=== PATIENT | male | born 1965 | race Caucasian/White ===

== ENCOUNTER 2021-11-02 12:09 | Emergency (ER) | payer OTHER, SELFPAY ==
[2021-11-02 12:16] VITALS: BP 130/67; PULSE 76; RESP 18; O2SAT 98; BMI 19.6
[2021-11-02 13:25] VITALS: BP 130/67; PULSE 76; RESP 18; TEMP 36.9; O2SAT 98; BMI 19.6
--- NOTE | 2021-11-02 13:54 | HMH.EDUTC ---
[facility] [place] Disposition Clinical Impression: Bronchitis Sinusitis Qualifiers: Sinusitis location: unspecified location Chronicity: unspecified Qualified Code(s): J32.9 - Chronic sinusitis, unspecified Disposition: Home, Self-Care Condition on Discharge: Good Instructions: Sinusitis, Acute Bronchitis, DI for Sinusitis, DI for Acute Bronchitis Additional Instructions: ? Start antibiotic today. Be sure to complete entire prescription even if feeling better ? Monitor temp. Tylenol every 4 hours as needed and / or ibuprofen every 6 hours as needed ( As long as your primary care physician has told you that it ok to take both. For fever/aches/pains ER if no less than 101 despite Tylenol or Motrin ? Humidifier/vaporizer or hot steamy shower ? Inhaler every 4-6 hours as needed like we discussed. If unsure how to use it, ask pharmacist to demonstrate how. Should help open airways and improve cough, wheezing, and shortness of breath ? Mucinex for your cough Be sure to drink lots of water. *Start steroid today. Helps with inflammation therefore, cough and wheezing. Follow directions on the package. Reviewed side effects. Patient reports taking them before. Follow up IMMEDIATELY for new or worsening of symptoms OR no noticeable improvement over the next 48-72 hours. 911 immediately for any life threatening symptoms such as chest pain or difficulty breathing Prescriptions: Benzonatate [Benzonatate 100mg cap] 100 mg PO Q8HP PRN #15 cap PRN Reason: Cough Transmission Status: Received by [id number] predniSONE [Deltasone 20mg tablet] 20 mg PO BID 5 Days #10 tab Transmission Status: Received by [facility] Cefdinir [Omnicef 300mg Capsule] 300 mg PO BID #20 cap Transmission Status: Received by [facility] Azithromycin [Z-Rashid 250mg Tab] 250 mg PO DIRECTED #6 tab Transmission Status: Received by [facility] Referrals: Provider,Referral, MD [Primary Care Provider] - As needed Forms: Work/School Release Time of Disposition: 14:18 Medical Decision Making - John Inquiry Pt receiving controlled substance: No John was queried for this patient: No Vital Signs: 11/02/21 12:16 11/02/21 13:25 11/02/21 14:20 Temperature 98.4 F 98.4 F Temperature Source Oral Pulse Rate 76 Pulse Rate [Left Radial] 76 76 Respiratory Rate 18 18 18 Blood Pressure 130/67 Blood Pressure [Right Arm] 130/67 130/67 Blood Pressure Mean [Right Arm] 88 88 Blood Pressure Source [Right Arm] Automatic Cuff Blood Pressure Position [Right Arm] Sitting 02 Sat by Pulse Oximetry 98 98 Oxygen Delivery Method Room Air Room Air Orders (Tests/Meds): ED MEDICATIONS Discontinued Medications Generic Name Dose Route Start Last Admin Trade Name Freq PRN Reason Stop Dose Admin Albuterol Sulfate 2 puffs 11/02/21 14:11 Albuterol-Hfa 90mcg/Puff Inhaler 8gm IH 12/02/21 14:10 Q6HP PRN Shortness Of Breath Medical Decision Narrative: Recommended CXR and patient declined states that he does not have any insurance and does not want to get one Medication discussed with Pharmacy and patient declined lab [facility] [place] HPI - General Stated complaint: cough,runny nose, congestion Time Seen by Provider: 11/02/21 14:05 Mode of Arrival: Ambulatory Source of Information: Patient Limitations: No Limitations Description of Symptoms (Recalled from Triage Doc. by RN): PATIENT C/O CHEST CONGESTION AND SINUS PRESSURE X 2 WEEKS HEENT Symptoms (Recalled from RN notes): Yes Resp Symptoms (Recalled from RN notes): No Skin Symptoms (Recalled from RN notes): No MS Symptoms (Recalled from RN notes): No Functional Status (Recalled from RN notes): WNL - History of Present Illness Provider Complaint: Patient states that he has been having sinus pain and pressure and feels like it is trying to move into his chest States that feels like it is worse in the morning when he wakes up State that he is an everyday smoker
[2021-11-02 14:20] VITALS: BP 130/67; PULSE 76; RESP 18; TEMP 36.9; O2SAT 98
== END 2021-11-02 14:24 | disposition home or self-care (01) ==
PROVIDERS: Emergency Provider Nurse Practitioner
DX: J20.9 Acute bronchitis, unspecified (principal); J32.9 Chronic sinusitis, unspecified
CPT/HCPCS: 99202; G0463

== ENCOUNTER → 2022-05-04 13:56 | Outpatient (CLI) | payer OTHER, SELFPAY ==
--- NOTE | 2022-05-04 13:59 | XR_ITS ---
FINAL REPORT CLINICAL HISTORY: SOA FINDINGS: Two views of the chest were obtained. The heart size and pulmonary vascularity are within normal limits. The mediastinum is normal. There is hyperinflation consistent with COPD. There is a small right pleural effusion or pleural thickening. There is mild biapical scarring. There is no pneumothorax. The bony thorax is intact. IMPRESSION: Small right pleural effusion or pleural thickening. Reviewed, Interpreted and Dictated by Nik Perrin III, MD Transcribed by Nataliia Barber Authenticated and [facility]
[2022-05-04 15:42] LABS: Basophils # 0.1 K/mm3 (0-0.2); Eosinophils # 0.1 K/mm3 (0.0-0.4); Eosinophils % 2.3 % (0.1-12.0); Hematocrit 49.8 % (42.0-52.0); Hemoglobin 17.3 g/dL (14.1-18.0); Lymphocytes # 1.5 K/mm3 (0.7-4.5); Mean Corpuscular HGB Conc 34.7 g/dL (31.8-35.4); Mean Corpuscular Hemoglobin 32.4 pg (27.0-31.2); Mean Corpuscular Volume 93.3 fl (80-94); Mean Platelet Volume 7.5 fl (7.4-10.4); Monocytes # 0.3 K/mm3 (0.1-1.0); Monocytes % 5.2 % (1.7-9.3); Neutrophils % 66.6 % (37.0-80.0); Platelet Count 276 K/mm3 (142-424); Red Blood Count 5.33 M/mm3 (4.60-6.20); Red Cell Distribution Width 13.2 % (11.5-17.5)
[2022-05-04 15:56] LABS: Alanine Aminotransferase 16 U/L (12-78); Albumin Level 4.4 g/dl (3.5-5.0); Albumin/Globulin Ratio 1.6 (1.1-1.8); Alkaline Phosphatase 138 U/L (38-126); Anion Gap 11.6 mEq/L (5-15); Aspartate Amino Transferase 25 U/L (17-59); Bilirubin,Total 0.7 mg/dl (0.2-1.3); Blood Urea Nitrogen 12 mg/dl (9-20); Calcium 9.8 mg/dl (8.4-10.2); Carbon Dioxide 27 mmol/L (22.0-30.0); Chloride 104 mmol/L (98-107); Estimated Glomerular Filt Rate 117 ml/min (>60); GFR (African American) 141 ML/MIN (>60); Globulin 2.7 g/dL (1.3-3.2); Glucose 94 mg/dl (74-100); Potassium 4.6 mmoL/L (3.5-5.1); Sodium 138 mmol/L (136-145); Total Protein,Serum 7.1 g/dl (6.3-8.2)
[2022-05-06 08:15] LABS: HIV Screen 4th Generation wRfx Non Reactive (Non Reactive)
[2022-05-06 09:46] LABS: Hep B Surface Ab, Qual Non Reactive (.); Hepatitis C Antibody <0.1 s/co ratio (0.0-0.9)
== END ==
PROVIDERS: PCP Nurse Practitioner Family; Visit Provider Nurse Practitioner Family
DX: R06.02 Shortness of breath (principal); B18.2 Chronic viral hepatitis C; R53.83 Other fatigue; Z11.4 Encounter for screening for human immunodeficiency virus [HIV]
CPT/HCPCS: 71046; 80053; 85025; 86703; 86706; 87380; G0432

== ENCOUNTER → 2022-05-07 11:13 | Outpatient (CLI) | payer OTHER, SELFPAY ==
--- NOTE | 2022-05-07 11:25 | XR_ITS ---
PROCEDURE INFORMATION: Exam: XR Lumbosacral Spine Exam date and time: 05/07/2022 11:26 AM Age: 57 years old Clinical indication: Low back pain TECHNIQUE: Imaging protocol: Radiologic exam of the lumbosacral spine. Views: 4 or 5 views. COMPARISON: No relevant prior studies available. FINDINGS: Bones/joints: Normal. No acute fracture. Normal alignment. Soft tissues: Unremarkable. IMPRESSION: No acute findings.
[2022-05-10 07:19] LABS: Hep A Ab, Total Negative (Negative); Hep B Core Ab, Total Negative (Negative); Hep B Surface Ab, Qual Non Reactive (.); Hepatitis B Surface Antigen Negative (Negative)
[2022-05-12 02:25] LABS: ALT (SGPT) P5P 14 IU/L (0-55); Alpha 2-Macroglobulins, Qn 170 mg/dL (110-276); Apolipoprotein A-1 152 mg/dL (101-178); Bilirubin, Total 0.2 mg/dL (0.0-1.2); Fibrosis Score 0.07 (0.00-0.21); GGT 22 IU/L (0-65); Haptoglobin 234 mg/dL (29-370); Necroinflammat Activity Grade A0-No activity (.); Necroinflammat Activity Score 0.03 (0.00-0.17)
== END ==
PROVIDERS: PCP Nurse Practitioner Family; Visit Provider Nurse Practitioner Family
DX: R06.02 Shortness of breath (principal); R53.83 Other fatigue; J32.9 Chronic sinusitis, unspecified; B18.2 Chronic viral hepatitis C; M54.50 Low back pain, unspecified; M79.605 Pain in left leg
CPT/HCPCS: 36415; 72110; 81596; 86704; 86706; 86708; 87340; 87522

== ENCOUNTER → 2023-04-24 12:19 | Outpatient (CLI) | payer OTHER, SELFPAY ==
--- NOTE | 2023-04-24 12:24 | XR_ITS ---
FINAL REPORT CLINICAL HISTORY: cough, soa COMPARISON: 05/04/2022 FINDINGS: TWO VIEW CHEST The heart size is normal. The mediastinum is normal. The lungs are hyperinflated consistent with COPD. There are areas of presumed bilateral scarring. There is new right suprahilar opacity of uncertain etiology, may be inflammatory or neoplastic. There is no pneumothorax. IMPRESSION: Areas of presumed scarring, which are bilaterally. New right suprahilar opacity of uncertain etiology, may be inflammatory or neoplastic. Recommend short term follow-up radiographs in 6 to 8 weeks or a chest CT scan with contrast is recommended. Reviewed, Interpreted and Dictated by Nik Perrin III, MD Transcribed by Hiren Velázquez Authenticated and [facility]
[2023-04-24 17:56] LABS: Adenovirus,PCR Not Detected (NotDetected); Bordetella Pertussis Not Detected (NotDetected); Chlamydophila Pneumoniae, PCR Not Detected (NotDetected); Coronavirus 19, PCR Not Detected (NotDetected); Coronavirus 229E Not Detected (NotDetected); Coronavirus NL63 Not Detected (NotDetected); Coronavirus OC43 Not Detected (NotDetected); Coronovirus HKU1,PCR Not Detected (NotDetected); Human Metapneumovirus Not Detected (NotDetected); Influenza A, PCR Not Detected (NotDetected); Influenza AH1, 2009 Not Detected (NotDetected); Influenza AH1, PCR Not Detected (NotDetected); Influenza AH3,PCR Not Detected (NotDetected); Influenza B, PCR Not Detected (NotDetected); Mycoplasma Pneumoniae, PCR Not Detected (NotDetected); Parainfluenza 1, PCR Not Detected (NotDetected); Parainfluenza 2, PCR Not Detected (NotDetected); Parainfluenza 3, PCR Not Detected (NotDetected); Parainfluenza 4, PCR Not Detected (NotDetected); Respiratory Syncytial Virus Not Detected (NotDetected); Rhinovirus/Enterovirus Not Detected (NotDetected)
== END ==
PROVIDERS: PCP Nurse Practitioner Family; Visit Provider Student in an Organized Health Care Education/Training Program
DX: R05.9 Cough, unspecified (principal); M67.00 Short Achilles tendon (acquired), unspecified ankle; R06.02 Shortness of breath
CPT/HCPCS: 71046; 87581; 87632; 87798

== ENCOUNTER → 2023-05-05 12:31 | Outpatient (CLI) | payer OTHER, SELFPAY ==
--- NOTE | 2023-05-05 12:35 | CT_ITS ---
FINAL REPORT TECHNIQUE: Axial images through the chest was performed with and without contrast. Sagittal and coronal reformatted images were performed and reviewed. This study was performed with techniques to keep radiation doses as low as reasonably achievable (ALARA). Individualized dose reduction techniques using automated exposure control or adjustment of mA and/or kV according to the patient's size were employed. CLINICAL HISTORY: abnormal CXR, New right suprahilar opacity FINDINGS: There is no evidence of mediastinal mass or adenopathy. No axillary or hilar mass is identified. There is no pleural or pericardial effusion. The heart is normal in size. There are changes of emphysema. There is an irregular, slightly nodular opacity in the anterior right upper lobe measuring 14 mm well seen on image 7. This may be scar but underlying nodule is not excluded. Limited images of the upper abdomen reveal several hypodense liver lesions which may be cysts but incompletely evaluated. There is no acute osseous abnormality. IMPRESSION: Irregular, slightly nodular opacity in the right upper lobe. While this may be scar, recommend six-month follow-up to ensure resolution. Emphysema. Liver lesions, may be cysts but incompletely evaluated. Reviewed, Interpreted and Dictated by Radha Mead MD Transcribed by Milana Sewell Authenticated and [facility]
== END ==
PROVIDERS: PCP Nurse Practitioner Family; Visit Provider Student in an Organized Health Care Education/Training Program
DX: R06.00 Dyspnea, unspecified (principal); R91.8 Other nonspecific abnormal finding of lung field; R93.89 Abnormal findings on diagnostic imaging of other specified body structures
CPT/HCPCS: 71270; Q9967

== ENCOUNTER → 2023-05-29 07:58 | Outpatient (CLI) | payer OTHER, SELFPAY ==
--- NOTE | 2023-05-29 07:58 | US_ITS ---
FINAL REPORT CLINICAL HISTORY: liver lesion on CT COMPARISON: CT chest 05/05/2023 FINDINGS: Sonographic images of the right upper quadrant were obtained. The pancreas is partially obscured. 2 presumed hepatic cysts, largest measures 3.4 x 2.7 cm and contains debris. The gallbladder appears normal without evidence of gallstones.There is no evidence of biliary ductal dilatation.The common duct measures 3 mm. Limited images of the right kidney are unremarkable. IMPRESSION: Two presumed hepatic cysts up to 3.4 cm. Reviewed, Interpreted and Dictated by Nik Perrin III, MD Transcribed by Amisha Freitas Authenticated and [facility]
[2023-05-29 19:08] LABS: Basophils % 0.7 % (0.1-2.0); Eosinophils # 0.1 K/mm3 (0.0-0.4); Hematocrit 50.1 % (42.0-52.0); Hemoglobin 16.3 g/dL (14.1-18.0); Lymphocytes # 1.2 K/mm3 (0.7-4.5); Lymphocytes % 19.1 % (10-50); Mean Corpuscular HGB Conc 32.6 g/dL (31.8-35.4); Mean Corpuscular Hemoglobin 31.7 pg (27.0-31.2); Mean Corpuscular Volume 97.3 fl (80-94); Mean Platelet Volume 9.5 fl (7.4-10.4); Monocytes # 0.3 K/mm3 (0.1-1.0); Monocytes % 4.6 % (1.7-9.3); Neutrophils # 4.8 K/mm3 (1.8-7.8); Neutrophils % 73.6 % (37.0-80.0); Platelet Count 305 K/mm3 (142-424); Red Blood Count 5.16 M/mm3 (4.60-6.20); Red Cell Distribution Width 13.7 % (11.5-17.5); White Blood Count 6.5 K/mm3 (4.8-10.8)
[2023-05-29 19:13] LABS: Alanine Aminotransferase 19 U/L (12-78); Albumin Level 4.2 g/dl (3.5-5.0); Albumin/Globulin Ratio 1.6 (1.1-1.8); Alkaline Phosphatase 151 U/L (38-126); Anion Gap 14.3 mEq/L (5-15); Aspartate Amino Transferase 27 U/L (17-59); Bilirubin,Total 0.5 mg/dl (0.2-1.3); Blood Urea Nitrogen 18 mg/dl (9-20); Calcium 9.2 mg/dl (8.4-10.2); Carbon Dioxide 24 mmol/L (22.0-30.0); Chloride 107 mmol/L (98-107); Chol/HDL Ratio 2.4 (1-3.5); Cholesterol 184 mg/dl (140-200); Estimated Glomerular Filt Rate 100 ml/min (>60); GFR (African American) 121 ML/MIN (>60); Globulin 2.6 g/dL (1.3-3.2); Glucose 172 mg/dl (74-100); HDL Cholesterol 78 mg/dl (40-60); Potassium 4.3 mmoL/L (3.5-5.1); Sodium 141 mmol/L (136-145); Total Protein,Serum 6.8 g/dl (6.3-8.2); Triglycerides 124 mg/dl (30-150); VLDL Cholesterol 25 mg/dL (0-40)
[2023-05-29 19:27] LABS: Direct LDL Cholesterol 89.66 mg/dL (100-129)
[2023-05-29 19:30] LABS: 25-OH Vitamin D, Total 30.6 ng/mL (30-100)
[2023-05-29 19:33] LABS: Hemoglobin A1C 5.3 % (4.0-6.0)
[2023-05-29 20:42] LABS: Prostate Specific Ag Screen 1.8 ng/ml (0.0-4.0); Thyroid Stimulating Hormone 3.26 uIU/mL (0.465-4.68)
== END ==
PROVIDERS: PCP Nurse Practitioner Family; Visit Provider Student in an Organized Health Care Education/Training Program
DX: K76.9 Liver disease, unspecified (principal); R91.8 Other nonspecific abnormal finding of lung field; R53.83 Other fatigue; Z72.0 Tobacco use; Z12.5 Encounter for screening for malignant neoplasm of prostate
CPT/HCPCS: 76705; 80053; 80061; 82306; 83036; 84443; 85025; G0103

== ENCOUNTER → 2023-05-29 10:30 | Outpatient (CLI) | payer OTHER, SELFPAY | PROVIDERS: PCP Student in an Organized Health Care Education/Training Program; Visit Provider Student in an Organized Health Care Education/Training Program | DX: R06.09 Other forms of dyspnea (principal) ==

== ENCOUNTER → 2023-06-07 14:44 | Outpatient (CLI) | payer OTHER, SELFPAY ==
[2023-06-07 15:20] LABS: Basophils # 0.1 K/mm3 (0-0.2); Basophils % 0.6 % (0.1-2.0); Eosinophils # 0.1 K/mm3 (0.0-0.4); Eosinophils % 1.9 % (0.1-12.0); Hematocrit 46.6 % (42.0-52.0); Hemoglobin 15.5 g/dL (14.1-18.0); Lymphocytes # 1.5 K/mm3 (0.7-4.5); Lymphocytes % 19.3 % (10-50); Mean Corpuscular HGB Conc 33.2 g/dL (31.8-35.4); Mean Corpuscular Hemoglobin 31.7 pg (27.0-31.2); Mean Corpuscular Volume 95.6 fl (80-94); Mean Platelet Volume 7.4 fl (7.4-10.4); Monocytes # 0.4 K/mm3 (0.1-1.0); Monocytes % 5.2 % (1.7-9.3); Neutrophils # 5.6 K/mm3 (1.8-7.8); Platelet Count 264 K/mm3 (142-424); Red Blood Count 4.87 M/mm3 (4.60-6.20); Red Cell Distribution Width 13.6 % (11.5-17.5); White Blood Count 7.6 K/mm3 (4.8-10.8)
[2023-06-10 21:08] LABS: QuantiFERON-TB Gold Plus Negative (Negative)
[2023-06-13 02:35] LABS: D001-IgE D pteronyssinus <0.10 kU/L (Class 0); D002-IgE D farinae <0.10 kU/L (Class 0); E001-IgE Cat Dander 0.44 kU/L (Class I); E005-IgE Dog Dander 0.32 kU/L (Class I); G002-IgE Bermuda Grass <0.10 kU/L (Class 0); G006-IgE Timothy Grass 0.18 kU/L (Class 0/I); I006-IgE Cockroach, German <0.10 kU/L (Class 0); Immunoglobulin E, Total 166 IU/mL (6-495); M001-IgE Penicillium chrysogen <0.10 kU/L (Class 0); M002-IgE Cladosporium herbarum <0.10 kU/L (Class 0); M003-IgE Aspergillus fumigatus <0.10 kU/L (Class 0); M006-IgE Alternaria alternata <0.10 kU/L (Class 0); T001-IgE Maple/Box Elder <0.10 kU/L (Class 0); T003-IgE Common Silver Birch <0.10 kU/L (Class 0); T006-IgE Cedar, Mountain <0.10 kU/L (Class 0); T007-IgE Oak, White <0.10 kU/L (Class 0); T008-IgE Elm, American <0.10 kU/L (Class 0); T010-IgE Walnut <0.10 kU/L (Class 0); T011-IgE Maple Leaf Sycamore <0.10 kU/L (Class 0); T014-IgE Cottonwood 0.11 kU/L (Class 0/I); T015-IgE Ash, White <0.10 kU/L (Class 0); T022-IgE Pecan, Hickory <0.10 kU/L (Class 0)
[2023-06-13 02:36] LABS: E072-IgE Mouse Urine <0.10 kU/L (Class 0); T070-IgE White Mulberry <0.10 kU/L (Class 0); W001-IgE Ragweed, Short <0.10 kU/L (Class 0); W011-IgE Thistle, Russian <0.10 kU/L (Class 0); W014-IgE Pigweed, Common <0.10 kU/L (Class 0); W018-IgE Sheep Sorrel <0.10 kU/L (Class 0)
[2023-06-13 16:20] LABS: Alpha-1-Antitrypsin 202 mg/dL (101-187)
== END ==
PROVIDERS: PCP Nurse Practitioner Family; Visit Provider Internal Medicine Pulmonary Disease
DX: J30.9 Allergic rhinitis, unspecified (principal); J45.909 Unspecified asthma, uncomplicated
CPT/HCPCS: 36415; 82103; 82104; 82785; 85025; 86003; 86480

== ENCOUNTER 2023-06-29 07:55 | Outpatient (CLI) | payer OTHER, SELFPAY ==
[2023-06-29 08:10] VITALS: BMI 17.1
[2023-06-29 08:18] VITALS: BP 184/85; PULSE 50; RESP 17; TEMP 36.4; O2SAT 97
[2023-06-29 08:24] LABS: Basophils # 0.1 K/mm3 (0-0.2); Eosinophils # 0.2 K/mm3 (0.0-0.4); Eosinophils % 4.3 % (0.1-12.0); Hematocrit 50.7 % (42.0-52.0); Hemoglobin 16.2 g/dL (14.1-18.0); Lymphocytes # 1.5 K/mm3 (0.7-4.5); Lymphocytes % 26.6 % (10-50); Mean Corpuscular HGB Conc 31.9 g/dL (31.8-35.4); Mean Corpuscular Hemoglobin 30.4 pg (27.0-31.2); Mean Corpuscular Volume 95.2 fl (80-94); Mean Platelet Volume 7.4 fl (7.4-10.4); Monocytes # 0.4 K/mm3 (0.1-1.0); Monocytes % 6.6 % (1.7-9.3); Neutrophils # 3.5 K/mm3 (1.8-7.8); Neutrophils % 61.6 % (37.0-80.0); Platelet Count 265 K/mm3 (142-424); Red Blood Count 5.32 M/mm3 (4.60-6.20); Red Cell Distribution Width 13.8 % (11.5-17.5); White Blood Count 5.6 K/mm3 (4.8-10.8)
[2023-06-29 08:38] LABS: Anion Gap 9.3 mEq/L (5-15); Blood Urea Nitrogen 13 mg/dl (9-20); Calcium 9.1 mg/dl (8.4-10.2); Carbon Dioxide 27 mmol/L (22.0-30.0); Chloride 106 mmol/L (98-107); Creatinine Clearance Estimated 82 mL/min (50-200); Estimated Glomerular Filt Rate 100 ml/min (>60); GFR (African American) 121 ML/MIN (>60); Glucose 90 mg/dl (74-100); Potassium 4.3 mmoL/L (3.5-5.1); Sodium 138 mmol/L (136-145)
[2023-06-29 09:37] VITALS: BP 131/74; PULSE 45; RESP 18; O2SAT 99
--- NOTE | 2023-06-29 09:37 | PC.NURSE ---
Rec'd pt to post op for observation after CTA. pt alert and oriented with no C/O, VSS. Drinking coffee.
[2023-06-29 09:49] VITALS: BP 136/76; PULSE 49; RESP 18; O2SAT 99
--- NOTE | 2023-06-29 09:50 | PC.NURSE ---
Pt stable, rec'd no metoprolol before or during procedure, vss. Pt discharged.
[2023-06-29 11:16] VITALS: PULSE 47; O2SAT 100
== END 2023-06-29 09:51 | disposition home or self-care (01) ==
LOC: RAD 07:55
PROVIDERS: PCP Nurse Practitioner Family; Visit Provider Internal Medicine
DX: I25.10 Atherosclerotic heart disease of native coronary artery without angina pectoris (principal); R07.9 Chest pain, unspecified; R94.31 Abnormal electrocardiogram [ECG] [EKG]; Z72.0 Tobacco use
CPT/HCPCS: 75574; 80048; 85025; Q9967

== ENCOUNTER 2023-07-21 07:32 | Day surgery (SDC) | payer OTHER, SELFPAY ==
[2023-07-21] VITALS (11 sets, daily range): BP systolic 144–168; BP diastolic 63–97; PULSE 48–66; RESP 17–18; O2SAT 93–100; BMI 17.3; BMI 16.2
--- NOTE | 2023-07-21 07:09 | IR_ITS ---
APPROVED REPORT Patient Location: Outpatient Splicer Machine Operator: KYMBERLY Carroll RT (R) PROCEDURES Left heart catheterization Left ventriculogram Selective coronary angiogram Intravascular ultrasound to the left main artery and LAD Drug-eluting stent deployment to the proximal to mid LAD INDICATION Coronary artery disease, Abnormal CCTA, MLA of 3.0 mm??? in the proximal LAD, Angina pectoris Informed consent was obtained prior to the procedure. COMPLICATIONS NONE Estimated Blood Loss: LESS THAN 10 ML TECHNIQUE One percent lidocaine used to anesthetize the right anterior aspect of the wrist. The right radial artery was accessed via the Seldinger technique. A 6 Lao sheath was placed in the right radial artery. 2.5 mg of Verapamil, 800 mcg of nitroglycerin, 1mg Lidocaine and 5000 U Heparin were given through the arterial sheath. The papa catheter was also used to perform left heart catheterization, left ventriculogram and selective coronary angiogram. At the end the diagnostic angiogram therapeutic heparin was administered and the guide catheter was placed in left main artery followed by Choice PT extra-support wire down the LAD. There was never any dampening upon engagement of the left main artery. Intravascular ultrasound probe was advanced in the left main artery had an MLA exceeding 6.5 mm???. The IVUS catheter was advanced to the proximal LAD which demonstrated a calcified concentric stenosis with an MLA in the proximal LAD of 3.0 mm???. Because of this a 3 mm x 22 mm Jonh frontier stent was deployed at 20 clinton reducing the stenosis. An additional 2.75 x 12 mm Jonh frontier stent was placed distal to the for stent yet still overlapping and deployed in the mid segment to give a better transition into the mid LAD. The balloon was pulled back and deployed at 24 clinton to post dilate. Repeat intravascular ultrasound demonstrated the stent was slightly undersized at the calcified area with less than ideal expansion of the stent. A 3.5 x 8 mm noncompliant balloon was placed in the proximal portion of the stent as well as adjacent to the first diagonal artery at the area of interest and deployed at 24 clinton. Better angiographic results were obtained. The diagonal artery was widely patent with MARIBEL-3 flow. Intravascular ultrasound probe after the first stent deployment demonstrated there was no snowplow effect or atheromatous debris in the ostial segment of the large diagonal artery. After achieving excellent angiograph results the apparatus was removed the sheath was removed and hemostasis achieved using TR banding patient was transferred to the postop holding in stable condition ANGIOGRAPHIC RESULTS The left main artery Is small in caliber with mild atheromatous plaque nothing greater than 10 to 20% The left anterior descending artery Has a calcified concentric 70 to 80% stenosis with diffuse 30% mid vessel stenoses The circumflex artery Nondominant with diffuse 10 to 20% stenoses The right coronary artery Dominant with mid vessel 30 to 40% stenosis and distal 30% stenoses The HUMMEL ventriculogram reveals Vertically oriented heart with normal ejection fraction 65% The left ventricular end-diastolic pressure 10 mmHg IMPRESSION Severe calcified proximal LAD disease as described above Successful stenting of the proximal to mid LAD severe disease reduced to less than 10% with 2 contiguous drug-eluting stents Mild left main disease Vertically oriented heart with normal ejection fraction likely all secondary to COPD Normal left ventricular end-diastolic pressure PLAN 1. Plavix 75 mg daily plus aspirin 81 mg daily 2. Avoidance of tobacco products 3. Referral to pulmonology due to suspected advanced COPD 4. LDL less than 55 but she with high intensity statin 5. Car
[2023-07-21 08:16] LABS: Basophils # 0.1 K/mm3 (0-0.2); Basophils % 1.4 % (0.1-2.0); Eosinophils # 0.1 K/mm3 (0.0-0.4); Eosinophils % 1.8 % (0.1-12.0); Hematocrit 51.9 % (42.0-52.0); Hemoglobin 16.8 g/dL (14.1-18.0); Lymphocytes # 1.1 K/mm3 (0.7-4.5); Lymphocytes % 24.5 % (10-50); Mean Corpuscular HGB Conc 32.3 g/dL (31.8-35.4); Mean Corpuscular Hemoglobin 30.9 pg (27.0-31.2); Mean Corpuscular Volume 95.4 fl (80-94); Mean Platelet Volume 7.5 fl (7.4-10.4); Monocytes # 0.4 K/mm3 (0.1-1.0); Monocytes % 8.2 % (1.7-9.3); Neutrophils # 2.8 K/mm3 (1.8-7.8); Neutrophils % 64.1 % (37.0-80.0); Platelet Count 237 K/mm3 (142-424); Red Blood Count 5.44 M/mm3 (4.60-6.20); Red Cell Distribution Width 13.8 % (11.5-17.5); White Blood Count 4.4 K/mm3 (4.8-10.8)
[2023-07-21 08:24] LABS: Chloride 104 mmol/L (98-107); Potassium 3.9 mmoL/L (3.5-5.1); Sodium 138 mmol/L (136-145)
[2023-07-21 08:27] LABS: Anion Gap 12.9 mEq/L (5-15); Blood Urea Nitrogen 16 mg/dl (9-20); Calcium 8.9 mg/dl (8.4-10.2); Carbon Dioxide 25 mmol/L (22.0-30.0); Creatinine Clearance Estimated 83 mL/min (50-200); Estimated Glomerular Filt Rate 100 ml/min (>60); GFR (African American) 121 ML/MIN (>60); Glucose 89 mg/dl (74-100)
[2023-07-21 12:15] LABS: CATHL Activated Clotting Time > 400 SEC (74-125)
--- NOTE | 2023-07-21 13:24 | P.CONPHA_ITS ---
PHA Bank Operations Officer Discharge Med Industrial Roof Plumber: Adi Hubbard has received discharge medication counseling on the following medications: ASPIRIN PLAVIX (NEW) METOPROLOL ATORVASTATIN (NEW) RAMIPRIL (NEW) PATIENT HAD NO QUESTIONS OR CONCERNS AT THIS TIME. -QUIANA GONZALEZ, PHARMD
== END 2023-07-21 14:11 | disposition home or self-care (01) ==
PROVIDERS: PCP Nurse Practitioner Family; Visit Provider Internal Medicine
DX: I25.118 Atherosclerotic heart disease of native coronary artery with other forms of angina pectoris (principal); F17.210 Nicotine dependence, cigarettes, uncomplicated; K76.89 Other specified diseases of liver; Z79.899 Other long term (current) drug therapy
CPT/HCPCS: 80048; 85025; 85347; 92928; 92978; 92979; 93458; 99152; 99153; C1725; C1760; C1769; C1876; C9600; J1644; Q9967

== ENCOUNTER → 2023-07-25 08:28 | Outpatient (CLI) | payer OTHER, SELFPAY ==
--- NOTE | 2023-07-25 08:31 | CA_ITS ---
APPROVED REPORT EXAM: Comprehensive 2D, Doppler, and color-flow Echocardiogram Hand Molder And Caster: Ch[place]el [place] RDCS Ht: 6 ft 0 in Wt: 128lbs BSA: 1.76 BP: 145/77 mmHg Indications: MVP?/COPD/SOA/SMOKER/ABN EKG TDS LOW ACCESS SECONDARY TO COPD UNNABLE TO OBTAIN PSAX OF AV M-Mode Dimensions RVDd 2.29 cm (0.9-2.6) LVDd 4.34 cm (3.5-5.7) LVDs 3.36 cm (3.5-5.7) IVSd 0.98 cm (0.6-1.1) PWd 1.07 cm (0.6-1.1) EF (Teich) 45.70% FS 22.60% EDV (Teich) 84.90 mL ESV (Teich) 46.10 mL LV Diastology E Decel Time 413.00 (160-240 msec) E/A Ratio 1.1 MED E' 8.80 (< 7 cm/sec) E'/MED E' Ratio 6.23 (>14) LAT E' 10.10 (<10 cm/sec) E/LAT E' Ratio 5.43 (>14) Mitral Valve MV E Max Nathan. 55.00 (40-130 cm/s) MV A Velocity 48.00 (40-130 cm/s) E/A Ratio 1.14 MV Decel. Time 413.00 (160-240 ms) MV PHT 121.00 ms Left Ventricle The left ventricle is normal size. The left ventricular systolic function is normal. The left ventricular ejection fraction is within the normal range. There is normal left ventricular wall thickness. There is normal LV segmental wall motion. The left ventricular diastolic function is normal. LVEF is 55%. Right Ventricle The right ventricle is normal size. The right ventricular systolic function is normal. Atria The left atrium size is normal. The right atrium size is normal. There is no Doppler evidence of interatrial shunt. Aortic Valve The aortic valve leaflets are difficult to visualize, but grossly appear to open well. There is no aortic valvular stenosis. No aortic regurgitation is present. Mitral Valve The mitral valve leaflets are not very well visualized. The anterior leaflet appears to have at least mild MV prolapse. The posterior leaflet is not well visualized. No evidence of mitral valve stenosis. There is no mitral valve regurgitation noted. Tricuspid Valve The tricuspid valve leaflets are thin and pliable. Trace tricuspid regurgitation. Insufficient TR jet to estimate RVSP. Pulmonic Valve The pulmonary valve is not well visualized. Trace pulmonic regurgitation. Great Vessels The aortic root is normal in size. The ascending aorta is not well visualized. IVC is normal in size and collapses >50% with inspiration. Pericardium There is no pericardial effusion. Conclusion This was a technically difficult study due to poor acoustic windows. Normal biventricular systolic function. The anterior MV leaflet appears to have at least mild prolapse. The posterior MV leaflet is not well visualized. No significant valvular stenosis or regurgitation. Electronically signed by : Veena Merida MD 07/28/2023 19:23:49
== END ==
PROVIDERS: PCP Nurse Practitioner Family; Visit Provider Nurse Practitioner Family
DX: I25.10 Atherosclerotic heart disease of native coronary artery without angina pectoris (principal); R07.9 Chest pain, unspecified; R94.31 Abnormal electrocardiogram [ECG] [EKG]; Z72.0 Tobacco use
CPT/HCPCS: 93306

== ENCOUNTER → 2023-08-01 09:23 | Outpatient (CLI) | payer OTHER, SELFPAY ==
[2023-08-01 10:07] LABS: Basophils % 0.6 % (0.1-2.0); Eosinophils # 0.2 K/mm3 (0.0-0.4); Eosinophils % 2.2 % (0.1-12.0); Hematocrit 44.4 % (42.0-52.0); Hemoglobin 15.6 g/dL (14.1-18.0); Lymphocytes # 1.4 K/mm3 (0.7-4.5); Lymphocytes % 20.3 % (10-50); Mean Corpuscular HGB Conc 35.1 g/dL (31.8-35.4); Mean Corpuscular Hemoglobin 32.9 pg (27.0-31.2); Mean Corpuscular Volume 93.7 fl (80-94); Mean Platelet Volume 6.5 fl (7.4-10.4); Monocytes # 0.3 K/mm3 (0.1-1.0); Monocytes % 4.3 % (1.7-9.3); Neutrophils # 4.9 K/mm3 (1.8-7.8); Neutrophils % 72.6 % (37.0-80.0); Platelet Count 237 K/mm3 (142-424); Red Blood Count 4.73 M/mm3 (4.60-6.20); Red Cell Distribution Width 13.3 % (11.5-17.5); White Blood Count 6.8 K/mm3 (4.8-10.8)
[2023-08-01 10:45] LABS: Chloride 105 mmol/L (98-107)
[2023-08-01 10:46] LABS: Potassium 3.9 mmoL/L (3.5-5.1); Sodium 139 mmol/L (136-145)
[2023-08-01 10:48] LABS: Blood Urea Nitrogen 18 mg/dl (9-20); Estimated Glomerular Filt Rate 116 ml/min (>60); GFR (African American) 141 ML/MIN (>60)
[2023-08-01 10:49] LABS: Anion Gap 11.9 mEq/L (5-15); Carbon Dioxide 26 mmol/L (22.0-30.0); Glucose 63 mg/dl (74-100)
== END ==
PROVIDERS: PCP Nurse Practitioner Family; Visit Provider Internal Medicine
DX: I25.10 Atherosclerotic heart disease of native coronary artery without angina pectoris (principal); Z95.5 Presence of coronary angioplasty implant and graft
CPT/HCPCS: 36415; 80048; 85025

== ENCOUNTER → 2023-08-08 12:45 | Outpatient (CLI) | payer OTHER, SELFPAY ==
[2023-08-08 13:30] VITALS: PULSE 74; PULSE 78
== END ==
PROVIDERS: PCP Nurse Practitioner Family; Visit Provider Internal Medicine Pulmonary Disease
DX: R06.09 Other forms of dyspnea (principal)
CPT/HCPCS: 94060; 94618; 94640; 94727; 94729

== ENCOUNTER → 2023-10-10 23:23 | Outpatient (CLI) | payer OTHER, SELFPAY | LOC: LAB.DROPOF 23:24 | PROVIDERS: PCP Nurse Practitioner Family; Visit Provider Student in an Organized Health Care Education/Training Program | DX: R05.9 Cough, unspecified (principal); R06.2 Wheezing; R09.89 Other specified symptoms and signs involving the circulatory and respiratory systems | CPT/HCPCS: 87635 ==

== ENCOUNTER → 2023-10-12 12:51 | Outpatient (CLI) | payer OTHER, SELFPAY ==
--- NOTE | 2023-10-12 12:51 | CT_ITS ---
FINAL REPORT TECHNIQUE: Axial images were obtained through the chest without contrast. Sagittal and coronal reformatted images were obtained and reviewed. This study was performed with techniques to keep radiation doses as low as reasonably achievable (ALARA). Individualized dose reduction techniques using automated exposure control or adjustment of mA and/or kV according to the patient's size were employed. CLINICAL HISTORY: 6-month follow-up COMPARISON: 05/05/2023 FINDINGS: There are linear densities in the lung apices consistent with biapical pleural and parenchymal scarring. There is scarring in the periphery of the right lower lobe. There are moderate changes of centrilobular emphysema. The heart size is normal. There is no pericardial or pleural effusion. Limited images of the upper abdomen are unremarkable. No suspicious infiltrate or nodule identified. IMPRESSION: Biapical pleural and parenchymal scarring, stable. Reviewed, Interpreted and Dictated by Jerry Arteaga MD Transcribed by Milana Sewell Authenticated and [facility]
== END ==
LOC: RAD 12:51
PROVIDERS: PCP Nurse Practitioner Family; Visit Provider Internal Medicine Pulmonary Disease
DX: R91.8 Other nonspecific abnormal finding of lung field (principal)
CPT/HCPCS: 71250

== ENCOUNTER 2023-11-11 08:07 | Outpatient (CLI) | payer OTHER, SELFPAY ==
[2023-11-11 09:13] LABS: Basophils # 0.1 K/mm3 (0-0.2); Basophils % 1.2 % (0.1-2.0); Eosinophils # 0.1 K/mm3 (0.0-0.4); Eosinophils % 2.2 % (0.1-12.0); Hematocrit 43.4 % (42.0-52.0); Lymphocytes # 1.3 K/mm3 (0.7-4.5); Lymphocytes % 22.8 % (10-50); Mean Corpuscular HGB Conc 34.5 g/dL (31.8-35.4); Mean Corpuscular Hemoglobin 32.1 pg (27.0-31.2); Mean Corpuscular Volume 93.2 fl (80-94); Mean Platelet Volume 7.2 fl (7.4-10.4); Monocytes # 0.3 K/mm3 (0.1-1.0); Monocytes % 5.3 % (1.7-9.3); Neutrophils % 68.5 % (37.0-80.0); Platelet Count 204 K/mm3 (142-424); Red Blood Count 4.65 M/mm3 (4.60-6.20); Red Cell Distribution Width 13.6 % (11.5-17.5); White Blood Count 5.8 K/mm3 (4.8-10.8)
[2023-11-11 09:42] LABS: Alanine Aminotransferase 20 U/L (12-78); Albumin/Globulin Ratio 1.8 (1.1-1.8); Alkaline Phosphatase 114 U/L (38-126); Anion Gap 10.8 mEq/L (5-15); Aspartate Amino Transferase 24 U/L (17-59); Bilirubin,Total 0.4 mg/dl (0.2-1.3); Blood Urea Nitrogen 16 mg/dl (9-20); Calcium 9.3 mg/dl (8.4-10.2); Carbon Dioxide 28 mmol/L (22.0-30.0); Chloride 106 mmol/L (98-107); Cholesterol 114 mg/dl (140-200); Estimated Glomerular Filt Rate 116 ml/min (>60); GFR (African American) 141 ML/MIN (>60); Gamma Glutamyl Transpeptidase 25 U/L (15-73); Globulin 2.2 g/dL (1.3-3.2); Glucose 90 mg/dl (74-100); HDL Cholesterol 56 mg/dl (40-60); Potassium 4.8 mmoL/L (3.5-5.1); Sodium 140 mmol/L (136-145); Total Protein,Serum 6.2 g/dl (6.3-8.2); Triglycerides 73 mg/dl (30-150); VLDL Cholesterol 15 mg/dL (0-40)
[2023-11-11 09:53] LABS: Direct LDL Cholesterol 45.83 mg/dL (100-129)
[2023-11-11 09:59] LABS: 25-OH Vitamin D, Total 18.5 ng/mL (30-100)
[2023-11-11 10:12] LABS: Thyroid Stimulating Hormone 1.83 uIU/mL (0.465-4.68)
== END 2023-11-11 23:59 ==
LOC: LAB 08:08
PROVIDERS: PCP Student in an Organized Health Care Education/Training Program; Visit Provider Student in an Organized Health Care Education/Training Program
DX: E78.5 Hyperlipidemia, unspecified (principal); E55.9 Vitamin D deficiency, unspecified; I25.10 Atherosclerotic heart disease of native coronary artery without angina pectoris; Z13.29 Encounter for screening for other suspected endocrine disorder; R74.8 Abnormal levels of other serum enzymes; Z68.1 Body mass index [BMI] 19.9 or less, adult; Z72.0 Tobacco use
CPT/HCPCS: 36415; 80053; 80061; 82306; 82977; 84443; 85025

== ENCOUNTER 2023-11-21 08:20 | Outpatient (CLI) | payer OTHER, SELFPAY ==
--- NOTE | 2023-11-21 08:21 | CT_ITS ---
FINAL REPORT CLINICAL HISTORY: hepatic cyst COMPARISON: CT chest dated 10/12/2023, abdominal ultrasound dated 05/29/2023 FINDINGS: Axial CT images of the abdomen and pelvis were obtained without intravenous contrast. Coronal reformatted images were also obtained.This study was performed with techniques to keep radiation doses as low as reasonably achievable (ALARA). Individualized dose reduction techniques using automated exposure control or adjustment of mA and/or kV according to the patient's size were employed. Abdomen: There is stable mild scarring in the right lung base with right lateral pleural thickening and calcification. There is no evidence of renal stone or hydronephrosis. There are several low-attenuation liver masses. The largest in the lateral right hepatic lobe measures 2.9 cm and is stable since the recent CT in September 2023. The spleen and pancreas have an unremarkable, unenhanced appearance. No mass or adenopathy is seen. No inflammatory process is identified. Moderate vascular calcifications are noted. Pelvis: Images of the pelvis reveal no evidence of ureteral dilation or ureteral stone.No mass or abnormal fluid collection is identified. The appendix is not visualized. There are no secondary signs of appendicitis. IMPRESSION: Several liver masses which appear similar to the prior exams are favored to represent cysts. Reviewed, Interpreted and Dictated by Nik Perrin III, MD Transcribed by Yoselin Phillip Authenticated and [facility]
== END 2023-11-21 23:59 ==
LOC: RAD 08:21
PROVIDERS: PCP Student in an Organized Health Care Education/Training Program; Visit Provider Student in an Organized Health Care Education/Training Program
DX: K76.89 Other specified diseases of liver (principal)
CPT/HCPCS: 74176

== ENCOUNTER 2023-12-14 18:20 | Outpatient (CLI) | payer OTHER, SELFPAY ==
[2023-12-14 17:49] LABS: Coronavirus 19, PCR Not Detected (NotDetected); Influenza A, PCR Not Detected (NotDetected); Influenza B, PCR Not Detected (NotDetected)
== END 2023-12-14 23:59 ==
LOC: LAB.DROPOF 18:21
PROVIDERS: PCP Student in an Organized Health Care Education/Training Program; Visit Provider Student in an Organized Health Care Education/Training Program
DX: R05.9 Cough, unspecified (principal); R09.89 Other specified symptoms and signs involving the circulatory and respiratory systems; R06.02 Shortness of breath
CPT/HCPCS: 87636

== ENCOUNTER 2023-12-26 14:41 | Outpatient (CLI) | payer OTHER, SELFPAY ==
--- NOTE | 2023-12-26 14:44 | XR_ITS ---
FINAL REPORT CLINICAL HISTORY: right knee pain COMPARISON: None FINDINGS: Three views of the right knee reveal no evidence of fracture or dislocation. The bony alignment is normal. The joint spaces are preserved. There is no evidence of joint effusion. Soft tissue calcification is present in the proximal lower leg. IMPRESSION: No acute abnormality identified. Reviewed, Interpreted and Dictated by Nik Perrin III, MD Transcribed by Meme Person Authenticated and [facility]
--- NOTE | 2023-12-26 14:44 | XR_ITS ---
FINAL REPORT CLINICAL HISTORY: left knee pain COMPARISON: None FINDINGS: Three views of the left knee reveal no evidence of fracture or dislocation. The bony alignment is normal. The joint spaces are preserved. There is no evidence of joint effusion. Posterior subcutaneous soft tissue calcifications are noted. IMPRESSION: No acute abnormality identified. Reviewed, Interpreted and Dictated by Nik Perrin III, MD Transcribed by Meme Person Authenticated and [facility]
== END 2023-12-26 23:59 ==
LOC: RAD 14:42
PROVIDERS: PCP Student in an Organized Health Care Education/Training Program; Visit Provider Student in an Organized Health Care Education/Training Program
DX: M25.561 Pain in right knee (principal); M25.562 Pain in left knee
CPT/HCPCS: 73562

== ENCOUNTER 2024-01-01 17:50 | Emergency (ER) | payer OTHER, SELFPAY ==
[2024-01-01 18:01] VITALS: BP 144/69; PULSE 56; RESP 20; TEMP 36.8; O2SAT 97; BMI 17.6
--- NOTE | 2024-01-01 18:36 | HMH.EDGENADL ---
Discharge Plan Disposition Patient Disposition: Home, Self-Care Prescriptions Prescriptions: New prednisone 20 mg tablet 60 mg PO DAILY 7 Days Qty: 21 0RF cyclobenzaprine 5 mg tablet 5 mg PO TID PRN (Reason: muscle spasm) 5 Days Qty: 15 0RF lidocaine 4 % adhesive patch,medicated 1 patch topical DAILY Qty: 5 0RF Rx Instructions: may leave on for up to 12 hrs No Action varenicline [Chantix Continuing Month Box] 1 mg tablet 1 mg PO BID Qty: 60 5RF Rx Instructions: To be filled after starter pack varenicline [Chantix Starting Month Box] 0.5 mg (11)- 1 mg (42) tablets,dose pack See Rx Instructions PO PER PKG DIR Qty: 53 0RF Rx Instructions: PO PER PKG DIR albuterol sulfate 90 mcg/actuation HFA aerosol inhaler 2 puff IH Q4-6H PRN (Reason: shortness of breath or wheezing) Qty: 8.5 0RF Anoro Ellipta 62.5-25 mcg/actuation blister with device 1 inh inhalation DAILY 90 Days Qty: 180 2RF montelukast [Singulair] 10 mg tablet 10 mg PO DAILY Qty: 90 2RF metoprolol succinate 25 mg tablet extended release 24 hr 12.5 mg PO QDAY Qty: 90 3RF azelastine 137 mcg (0.1 %) aerosol,spray 2 spray intranasal HS 90 Days Qty: 30 2RF Rx Instructions: administer into each nostril promethazine-DM 6.25-15 mg/5 mL syrup 5 ml PO Q4-6H PRN (Reason: cough) Qty: 118 0RF cholecalciferol (vitamin D3) 1,250 mcg (50,000 unit) capsule 1,250 mcg PO WEEKLY Qty: 8 0RF ramipril 10 mg capsule See Rx Instructions .ROUTE .COMPLEX Qty: 90 3RF Dose Instruction: TAKE 1 CAPSULE 1 TIME EACH DAY Rx Instructions: TAKE 1 CAPSULE 1 TIME EACH DAY atorvastatin 40 mg tablet See Rx Instructions .ROUTE .COMPLEX Qty: 90 3RF Dose Instruction: TAKE 1 TABLET 1 TIME EACH DAY AT BEDTIME Rx Instructions: TAKE 1 TABLET 1 TIME EACH DAY AT BEDTIME doxycycline hyclate 100 mg capsule 100 mg PO BID Qty: 20 0RF aspirin [Adult Low Dose Aspirin] 81 mg tablet,delayed release (DR/EC) 81 mg PO DAILY fluticasone propionate [Flonase Allergy Relief] 50 mcg/actuation spray,suspension 2 spray intranasal DAILY Rx Instructions: administer into each nostril clopidogrel 75 mg Tablet 75 mg PO DAILY 90 Days Qty: 90 3RF Referrals Follow up/Referrals: Azul Landry PA [Primary Care Provider] - See instructions Clinical Impressions Clinical Impression: Acute lumbosacral myofascial strain Instructions Patient Instructions: DI for Low Back Pain Discharge ED Provider: Dione Wagner General Adult HPI General Chief complaint: Back Pain/Injury Stated complaint: back pain Time Seen by Provider: 01/01/24 18:25 Mode of Arrival: Ambulatory Source of Information: Patient Limitations: No Limitations Description of Symptoms (Recalled from ER Triage Doc. by RN): hurt back lifting a box of cirramic tile. approx 100lbs History of Present Illness HPI narrative: Patient is a 58-year-old male presents today with bilateral lower back pain after lifting a 100 pound box of tile. Pain began suddenly while trying to lift this. Located off to the midline bilateral lower back nothing in the midline specifically. He denies any shooting sensations down his legs. Denies any saddle anesthesia denies any urinary retention, urinary incontinence, bowel incontinence, paralysis etc. No history of injection drug use fevers or cancer. Related Data Home Medications Medication Instructions Recorded Confirmed aspirin 81 mg tablet,delayed 81 mg PO DAILY Blood Thinner 06/29/23 12/26/23 release (Adult Low Dose Aspirin) fluticasone propionate 50 2 spray intranasal DAILY allergies 06/29/23 12/26/23 mcg/actuation nasal spray,suspension (Flonase Allergy Relief) Previous Rx's Medication Instructions Recorded albuterol sulfate 90 mcg/actuation 2 puff inhalation Q4-6H PRN 04/25/23 aerosol inhaler shortness of breath or wheezing #8.5 grams metoprolol succinate 25 mg 12.5 mg (1/2 x 25 mg) PO QDAY #90 07/05/23 tablet,extended release 24 hr tabs clopidogrel 75 mg tablet 75 mg PO DAILY 90 days #90 tabs 07/21/23 montelukast 10 mg tablet 10 mg PO DAILY #90 tabs 08/08/23 (Singulair) umeclidinium 62.5 mcg-vilanterol 1 inh inhalation DAILY 90 days 08/08/23 25 mcg/actuation powdr for #180 ea inhalation (Anoro Ellipta) azelastine 137 mcg (0.1 %) nasal 2 spray intranasal HS 90 days #30 10/18/23 spray aerosol mL cholecalciferol (vitamin D3) 1,250 1,250 mcg PO WEEKLY #8 caps 11/13/23 mcg (50,000 unit) capsule atorvastatin 40 mg tablet See Rx Instructions .Route 12/05/23 .COMPLEX #90 tabs ramipril 10 mg capsule See Rx Instructions .Route 12/05/23 .COMPLEX #90 caps promethazine-DM 6.25 mg-15 mg/5 mL 5 ml PO Q4-6H PRN cough #118 mL 12/14/23 oral syrup doxycycline hyclate 100 mg capsule 100 mg PO BID #20 caps 12/15/23 varenicline 0.5 mg (11)-1 mg (42) See Rx Instructions PO PER PKG DIR 12/26/23 tablets in a dose pack (Chantix #53 tabs Starting Month Box) varenicline 1 mg tablet (Chantix 1 mg PO BID #60 tabs 12/26/23 Continuing Month Box) cyclobenzaprine 5 mg tablet 5 mg PO TID PRN muscle spasm 5 01/01/24 days #15 tabs lidocaine 4 % topical patch 1 patch topical DAILY #5 ea 01/01/24 prednisone 20 mg tablet 60 mg (3 x 20 mg) PO DAILY 7 days 01/01/24 #21 tabs Allergies Allergy/AdvReac Type Severity Reaction Status Date / Time No Known Allergies Allergy Verified 12/29/23 09:41 [facility] Disclaimer: The information contained in this section may have been updated after the patient was seen, as this information can be updated by other users. Medical History (Updated 01/01/24 @ 18:35 by Dione Wagner MD) History of COVID-19 History of gastroesophageal reflux (GERD) Claudication COPD mixed type Smoker Atypical angina Abnormal computed tomography angiography (CTA) Abnormal CT scan of heart Allergic rhinitis Pulmonary emphysema Dyspnea on exertion Smoking greater than 30 pack years Encounter for screening for malignant neoplasm of lung Nodule of right lung Surgical History (Updated 12/29/23 @ 09:53 by Sada Christina RN) History of surgery H/O chest tube placement No history of previous surgery Family History Other Asthma COPD (chronic obstructive pulmonary disease) Social History (Updated 12/29/23 @ 09:46 by Sada Christina RN) Smoking Status: Current every day smoker tobacco type: cigarettes packs per day: 1 alcohol intake: never substance use type: denies use current occupational status: unemployed Travel in the last 8 weeks: None household members: significant other housing: house ROS Obtained: Yes All systems reviewed & no additional complaints except as documented Physical Exam General General appearance: alert and in no apparent distress Respiratory Respiratory exam: Present normal lung sounds bilaterally Cardiovascular Cardiovascular exam: Present regular rate Back Exam Back exam: Present tenderness Back 1 view image: 1. ttp 2. ttp Neurological Exam Neurological exam: Present alert and oriented X3 Medical Decision Making John Inquiry Pt receiving controlled substance: No Vital Signs: 01/01/24 18:01 Temperature 98.3 F Temperature Source Oral Pulse Rate [Right Radial] 56 L Respiratory Rate 20 Blood Pressure [Right Arm] 144/69 H Blood Pressure Mean [Right Arm] 94 02 Sat by Pulse Oximetry 97 Oxygen Delivery Method Room Air Orders (Tests/Meds): ED MEDICATIONS Generic Name Dose Route Start Last Admin Trade Name Freq PRN Reason Stop Dose Admin Acetaminophen 1,000 mg 01/01/24 18:30 Acetaminophen 500mg Tab PO 01/01/24 18:31 ONCE ONE Cyclobenzaprine HCl 5 mg 01/01/24 18:30 Cyclobenzaprine 10mg Tablet PO 01/01/24 18:31 ONCE ONE Lidocaine 1 each 01/01/24 18:30 Lidocaine 5% Transdermal Patch TP 01/01/24 18:31 ONCE ONE Prednisone 60 mg 01/01/24 18:30 Prednisone 20mg Tab PO 01/01/24 18:31 ONCE ONE Medical Decision Narrative: Well-appearing 58-year-old male presents today with lumbosacral strain after trying to lift a 100 pound box of tile. He has no red flags from history or physical standpoint warranting any emergent imaging specifically no concern for cauda equina or any [employer] involvement. This is consistent with a lumbosacral strain. He has been given steroids Tylenol Flexeril and a lidocaine patch. He is on multiple antiplatelet agents therefore did not give him any NSAIDs. He has been given scripts of symptomatic medications return precautions discharged in stable condition. Critical Care Critical Care Time Critical Care Time: No
[2024-01-01] MEDS: LIDOCAINE 5% TRANSDERMAL PATCH 1 EACH TP (18:41)
[2024-01-01] MEDS: CYCLOBENZAPRINE 10MG TABLET 5 MG PO (18:41)
[2024-01-01] MEDS: predniSONE 20MG TAB 60 MG PO (18:42)
[2024-01-01] MEDS: ACETAMINOPHEN 500MG TAB 1000 MG PO (18:42)
[2024-01-01 18:47] VITALS: BP 115/56; PULSE 60; RESP 18; TEMP 36.6; O2SAT 95
== END 2024-01-01 18:49 | disposition home or self-care (01) ==
PROVIDERS: Emergency Provider Student in an Organized Health Care Education/Training Program; PCP Student in an Organized Health Care Education/Training Program
DX: S33.5XXA Sprain of ligaments of lumbar spine, initial encounter (principal); X50.0XXA Overexertion from strenuous movement or load, initial encounter; J43.9 Emphysema, unspecified; I20.9 Angina pectoris, unspecified; F17.210 Nicotine dependence, cigarettes, uncomplicated
CPT/HCPCS: 99283

== ENCOUNTER 2024-01-11 18:45 | Outpatient (CLI) | payer OTHER, SELFPAY ==
[2024-01-11 18:49] LABS: Alanine Aminotransferase 31 U/L (12-78); Albumin Level 3.9 g/dl (3.5-5.0); Albumin/Globulin Ratio 1.8 (1.1-1.8); Alkaline Phosphatase 152 U/L (38-126); Anion Gap 10.3 mEq/L (5-15); Aspartate Amino Transferase 24 U/L (17-59); Bilirubin,Total 0.4 mg/dl (0.2-1.3); Blood Urea Nitrogen 18 mg/dl (9-20); Calcium 9.2 mg/dl (8.4-10.2); Carbon Dioxide 24 mmol/L (22.0-30.0); Chloride 107 mmol/L (98-107); Estimated Glomerular Filt Rate 116 ml/min (>60); GFR (African American) 141 ML/MIN (>60); Globulin 2.2 g/dL (1.3-3.2); Glucose 91 mg/dl (74-100); Potassium 4.3 mmoL/L (3.5-5.1); Sodium 137 mmol/L (136-145); Total Protein,Serum 6.1 g/dl (6.3-8.2); Uric Acid 4.3 mg/dl (3.5-8.5)
[2024-01-15 12:38] LABS: Anti-Centromere B Antibodies <0.2 AI (0.0-0.9); Anti-DNA (DS) Ab Qn <1 IU/mL (0-9); Anti-Jo-1 <0.2 AI (0.0-0.9); Anti-Smith Antibody <0.2 AI (0.0-0.9); Antichromatin Antibodies <0.2 AI (0.0-0.9); Antiscleroderma-70 Antibodies <0.2 AI (0.0-0.9); RNP Antibodies 0.3 AI (0.0-0.9); Sjogren's Anti-SS-A <0.2 AI (0.0-0.9); Sjogren's Anti-SS-B <0.2 AI (0.0-0.9)
[2024-01-20 10:35] LABS: RNA Polymerase IgG Ab <20
== END 2024-01-11 23:59 | disposition home or self-care (01) ==
LOC: LAB.DROPOF 18:46
PROVIDERS: PCP Student in an Organized Health Care Education/Training Program; Visit Provider Student in an Organized Health Care Education/Training Program
DX: L94.2 Calcinosis cutis (principal); M25.50 Pain in unspecified joint
CPT/HCPCS: 80053; 83520; 84550; 86225; 86235

== ENCOUNTER 2024-01-22 12:42 | Outpatient (CLI) | payer OTHER, SELFPAY ==
--- NOTE | 2024-01-22 12:43 | CT_ITS ---
FINAL REPORT CLINICAL HISTORY: claudication BLE's FINDINGS: Axial CT images of the lower abdomen, pelvis and bilateral lower extremities were obtained after the intravenous injection of intravenous contrast. Sagittal and coronal reformatted images were also obtained. This study was performed with techniques to keep radiation doses as low as reasonably achievable (ALARA). Individual dose reduction techniques using automated exposure control or adjustment of mA and/or kV according to the patient's size were employed. Moderate to severe diffuse vascular calcifications are seen. There is no evidence of abdominal aortic aneurysm or dissection in the lower abdomen. Mild plaque is seen in the lower abdominal aorta. There is occlusion of the right common and external iliac arteries. There is collateral filling of the right internal iliac arteries. Mild and moderate stenoses are noted of the left common iliac artery. There is occlusion of the left external iliac artery. The left internal iliac artery is patent. Mild stenosis is noted of the right common femoral artery. The right deep femoral artery is patent. A moderate stenosis is noted of the proximal right superficial femoral artery. The mid and distal superficial femoral artery are patent. There is three-vessel runoff to the distal lower leg. Moderate stenosis is noted at the level of the left common femoral artery. The left deep femoral artery is patent. Mild stenoses are noted of the left superficial femoral artery. The popliteal artery is patent. There is three-vessel runoff to the distal lower leg. 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 Occlusion of the left external iliac artery with reconstitution of the left common femoral artery. Three-vessel runoff to the distal lower leg bilaterally. Authenticated and [facility]
[2024-01-22] MEDS: 0.9 % SODIUM CHLORIDE 50 ML VIAL 100 ML IV (13:09)
[2024-01-22] MEDS: SODIUM CHLORIDE 0.9% 10ML SYR (RAD ONLY) 10 ML IV (13:09)
[2024-01-22] MEDS: IOPAMIDOL-370 (76%);100ML BOTTLE 120 ML IV (13:10)
== END 2024-01-22 23:59 | disposition home or self-care (01) ==
LOC: RAD 12:43
PROVIDERS: PCP Student in an Organized Health Care Education/Training Program; Visit Provider Physician Assistant
DX: I73.9 Peripheral vascular disease, unspecified (principal); I77.1 Stricture of artery
CPT/HCPCS: 73706; Q9967

== ENCOUNTER 2024-02-19 10:03 | Day surgery (SDC) | payer OTHER, SELFPAY ==
[2024-02-19] VITALS (9 sets, daily range): BP systolic 99–162; BP diastolic 57–79; PULSE 47–54; RESP 18; TEMP 36.6; O2SAT 92–96; BMI 17.6
--- NOTE | 2024-02-19 07:13 | IR_ITS ---
APPROVED REPORT Patient Location: Outpatient PROCEDURES Right radial arterial access Catheter placed in the distal abdominal aorta Distal abdominal aortogram with bilateral iliofemoral angiography INDICATION Abnormal FERNANDA, Peripheral artery disease, Abnormal CTA, Informed consent was obtained prior to the procedure. COMPLICATIONS NONE Estimated Blood Loss: LESS THAN 10 ML TECHNIQUE One percent lidocaine used to anesthetize the right anterior aspect of the wrist. The right radial artery was accessed via the Seldinger technique. A 6 Italian sheath was placed in the right radial artery. 2.5 mg of Verapamil, 800 mcg of nitroglycerin, 1mg Lidocaine and 5000 U Heparin were given through the arterial sheath. A PV multi curve was placed in the distal abdominal aorta where distal abdominal aortography was performed. Bilateral iliofemoral angiography was performed. Following this the apparatus was removed the sheath was removed and hemostasis achieved using TR banding patient was transferred to the postop holding in stable condition ANGIOGRAPHIC RESULTS Distal abdominal aorta is patent Right common iliac artery is ostially occluded and occluded throughout its entire course as is the right external iliac artery. There is reconstitution at the femoral head level via collaterals which reconstitute the right common femoral artery. The mid to distal right common femoral artery is patent branches into a profunda femoris and proximal superficial femoral artery The left common iliac artery is patent but has 30% stenosis. The left internal iliac artery is large widely patent and then collateralizes the distal left common femoral artery. The left external iliac artery is occluded throughout its entire course as is the proximal and mid left common femoral artery. The proximal left profunda femoris and left superficial femoral arteries are patent IMPRESSION Peripheral artery disease as described above PLAN 1. Will refer to [facility] vascular surgery for consideration of aortobifem surgery 2. Avoidance of tobacco products 3. LDL less than 55 to achieve that high intensity statin Electronically signed by : Moe Barrett MD 02/19/2024 14:45:30
[2024-02-19 10:28] LABS: Chloride 108 mmol/L (98-107); Potassium 4.6 mmoL/L (3.5-5.1); Sodium 137 mmol/L (136-145)
[2024-02-19 10:29] LABS: Basophils # 0.1 K/mm3 (0-0.2); Basophils % 1.4 % (0.1-2.0); Eosinophils # 0.2 K/mm3 (0.0-0.4); Eosinophils % 2.6 % (0.1-12.0); Hematocrit 44.7 % (42.0-52.0); Hemoglobin 15.3 g/dL (14.1-18.0); Lymphocytes # 1.6 K/mm3 (0.7-4.5); Lymphocytes % 25.9 % (10-50); Mean Corpuscular HGB Conc 34.2 g/dL (31.8-35.4); Mean Corpuscular Hemoglobin 32.4 pg (27.0-31.2); Mean Corpuscular Volume 94.8 fl (80-94); Mean Platelet Volume 7.5 fl (7.4-10.4); Monocytes # 0.3 K/mm3 (0.1-1.0); Neutrophils % 65.1 % (37.0-80.0); Platelet Count 239 K/mm3 (142-424); Red Blood Count 4.71 M/mm3 (4.60-6.20); White Blood Count 6.2 K/mm3 (4.8-10.8)
[2024-02-19 10:31] LABS: Anion Gap 5.6 mEq/L (5-15); Blood Urea Nitrogen 18 mg/dl (9-20); Calcium 9.4 mg/dl (8.4-10.2); Carbon Dioxide 28 mmol/L (22.0-30.0); Creatinine Clearance Estimated 84 mL/min (50-200); Estimated Glomerular Filt Rate 99 ml/min (>60); GFR (African American) 120 ML/MIN (>60); Glucose 93 mg/dl (74-100)
[2024-02-19] MEDS: VERAPAMIL 2.5MG/ML 2ML VIAL 2.5 MG IV (13:45)
[2024-02-19] MEDS: diphenhydrAMINE 50MG/ML VIAL 50 MG IV (13:45)
[2024-02-19] MEDS: LIDOCAINE 1% 10ML MDV 20 ML IJ (13:46)
[2024-02-19] MEDS: MIDAZOLAM HCL 1MG/1ML 5ML VIAL 1 MG IV (13:46)
[2024-02-19] MEDS: NITROGLYCERIN 800MCG/8ML SYR (CATH LAB) 800 MCG IA (13:46)
[2024-02-19] MEDS: HEPARIN 1,000 UNITS/500ML NS (CATH LAB) 3000 UNIT IV (13:46)
[2024-02-19] MEDS: 0.9 % SODIUM CHLORIDE 500 ML 25 ML IV (13:46)
[2024-02-19] MEDS: FENTANYL 100MCG/2ML VIAL 50 MCG IV (13:47)
[2024-02-19] MEDS: HEPARIN 1,000 UNITS/ML 10ML VIAL (CATH LAB) 10000 UNIT IV (13:47)
[2024-02-19] MEDS: IOPAMIDOL-250 (51%) 100ML BOT 30 ML IV (14:40)
== END 2024-02-19 16:08 | disposition home or self-care (01) ==
PROVIDERS: PCP Student in an Organized Health Care Education/Training Program; Visit Provider Internal Medicine
DX: I25.10 Atherosclerotic heart disease of native coronary artery without angina pectoris (principal); I70.213 Atherosclerosis of native arteries of extremities with intermittent claudication, bilateral legs; F17.210 Nicotine dependence, cigarettes, uncomplicated; Z86.16 Personal history of COVID-19; Z79.899 Other long term (current) drug therapy; J44.9 Chronic obstructive pulmonary disease, unspecified; I77.1 Stricture of artery
CPT/HCPCS: 36247; 36415; 75625; 75716; 80048; 85025; 99152; C1725; C1769; J1644; Q9966

== ENCOUNTER 2024-02-27 10:43 | Outpatient (CLI) | payer OTHER, SELFPAY ==
--- NOTE | 2024-02-27 10:43 | CA_ITS ---
FINAL REPORT CLINICAL HISTORY: right wrist pain post heart cath with right radial access 1 week ago, CAD, smoker, HTN, HLD. COMPARISON: None FINDINGS: Spectral and Doppler waveform evaluations of the right wrist was performed. Spectral analysis was performed. No evidence of pseudoaneurysm. There is thrombus seen in the right radial artery. IMPRESSION: Right radial artery thrombus. Reviewed, Interpreted and Dictated by Nik Perrin III, MD Transcribed by Amisha Freitas Authenticated and [facility]
== END 2024-02-27 23:59 | disposition home or self-care (01) ==
LOC: RT 10:43
PROVIDERS: PCP Student in an Organized Health Care Education/Training Program; Visit Provider Nurse Practitioner
DX: M79.601 Pain in right arm (principal); I73.9 Peripheral vascular disease, unspecified; E78.5 Hyperlipidemia, unspecified; I10 Essential (primary) hypertension; J44.9 Chronic obstructive pulmonary disease, unspecified; I25.10 Atherosclerotic heart disease of native coronary artery without angina pectoris; R94.31 Abnormal electrocardiogram [ECG] [EKG]; Z71.6 Tobacco abuse counseling; F17.210 Nicotine dependence, cigarettes, uncomplicated
CPT/HCPCS: 93931

== ENCOUNTER 2024-03-20 12:33 | Outpatient (CLI) | payer OTHER, SELFPAY ==
--- NOTE | 2024-03-20 12:34 | CA_ITS ---
FINAL REPORT CLINICAL HISTORY: Patient had heart cath with right wrist access 02/19/2024. 02/27/24 a right upper arterial ultrasound was performed with a right radial artery thrombus noted. Patient returns today to reassess this thrombus. COMPARISON: 02/27/2024 FINDINGS: Spectral and Doppler waveform evaluations of the right wrist was performed. Spectral analysis was performed. There is persistent thrombus of the right radial artery. IMPRESSION: Persistent thrombus of the right radial artery. Reviewed, Interpreted and Dictated by Nik Perrin III, MD Transcribed by Milana Sewell Authenticated and [facility]
== END 2024-03-20 23:59 | disposition home or self-care (01) ==
LOC: RT 12:34
PROVIDERS: PCP Student in an Organized Health Care Education/Training Program; Visit Provider Nurse Practitioner
DX: I74.2 Embolism and thrombosis of arteries of the upper extremities (principal)
CPT/HCPCS: 93931

== ENCOUNTER 2024-05-22 07:35 | Outpatient (CLI) | payer OTHER, SELFPAY ==
--- NOTE | 2024-05-22 07:35 | CA_ITS ---
FINAL REPORT CLINICAL HISTORY: persistent thrombus rt radial artery, pt on xarelto COMPARISON: 03/20/2024 FINDINGS: Arterial duplex Doppler evaluation of the right wrist with spectral analysis was performed. There is persistent thrombus seen in the distal right radial artery. IMPRESSION: Persistent thrombus distal right radial artery. Reviewed, Interpreted and Dictated by Nik Perrin III, MD Transcribed by Amisha Freitas Authenticated and [facility]
== END 2024-05-22 23:59 | disposition home or self-care (01) ==
LOC: RT 07:35
PROVIDERS: PCP Student in an Organized Health Care Education/Training Program; Visit Provider Physician Assistant
DX: I74.2 Embolism and thrombosis of arteries of the upper extremities (principal)
CPT/HCPCS: 93931

== ENCOUNTER 2024-06-14 13:49 | Outpatient (CLI) | payer OTHER, SELFPAY ==
--- NOTE | 2024-06-14 | CA_ITS ---
FINAL REPORT CLINICAL HISTORY: F/U RIGHT RADIAL THROMBUS,PT ON XARELTO COMPARISON: 05/22/2024 FINDINGS: Spectral and Doppler waveform evaluations of the right wrist was performed. Spectral analysis was performed. The right radial artery is small in caliber. There is no visible thrombus. IMPRESSION: No visible thrombus right radial artery. Reviewed, Interpreted and Dictated by Jerry Arteaga MD Transcribed by Amisha Freitas Authenticated and [facility]
== END 2024-06-14 23:59 | disposition home or self-care (01) ==
LOC: RT 13:49
PROVIDERS: PCP Student in an Organized Health Care Education/Training Program; Visit Provider Nurse Practitioner
DX: I73.9 Peripheral vascular disease, unspecified (principal); I74.2 Embolism and thrombosis of arteries of the upper extremities
CPT/HCPCS: 93931

== ENCOUNTER 2024-07-26 18:50 | Outpatient (CLI) | payer OTHER, SELFPAY ==
[2024-07-26 21:10] LABS: Prostate Specific Ag Screen 1.1 ng/ml (0.0-4.0)
[2024-07-26 22:41] LABS: HIV (1&2) Antibody Rapid NONREACTIVE (NONREACTIVE)
[2024-07-28 08:10] LABS: HCV Ab Non Reactive (Non Reactive)
== END 2024-07-26 23:59 | disposition home or self-care (01) ==
LOC: LAB.DROPOF 18:51
PROVIDERS: PCP Student in an Organized Health Care Education/Training Program; Visit Provider Student in an Organized Health Care Education/Training Program
DX: Z12.5 Encounter for screening for malignant neoplasm of prostate (principal); Z11.4 Encounter for screening for human immunodeficiency virus [HIV]; Z11.59 Encounter for screening for other viral diseases
CPT/HCPCS: 86803; 87389; G0103

== ENCOUNTER 2024-09-02 13:50 | Outpatient (CLI) | payer OTHER, SELFPAY ==
[2024-09-02 18:50] LABS: Basophils # 0.1 K/mm3 (0-0.2); Eosinophils # 0.2 K/mm3 (0.0-0.4); Eosinophils % 3.8 % (0.1-12.0); Hemoglobin 13.7 g/dL (14.1-18.0); Lymphocytes # 1.7 K/mm3 (0.7-4.5); Lymphocytes % 34.8 % (10-50); Mean Corpuscular HGB Conc 33.5 g/dL (31.8-35.4); Mean Corpuscular Hemoglobin 31.9 pg (27.0-31.2); Mean Corpuscular Volume 95.3 fl (80-94); Mean Platelet Volume 7.3 fl (7.4-10.4); Monocytes # 0.4 K/mm3 (0.1-1.0); Monocytes % 7.9 % (1.7-9.3); Neutrophils # 2.6 K/mm3 (1.8-7.8); Neutrophils % 52.4 % (37.0-80.0); Platelet Count 279 K/mm3 (142-424); Red Cell Distribution Width 13.9 % (11.5-17.5); White Blood Count 4.9 K/mm3 (4.8-10.8)
[2024-09-02 19:01] LABS: Globulin 2.1 g/dL (1.3-3.2); VLDL Cholesterol 14 mg/dL (0-40)
[2024-09-02 19:05] LABS: Alanine Aminotransferase 17 U/L (12-78); Albumin Level 3.8 g/dl (3.5-5.0); Albumin/Globulin Ratio 1.8 (1.1-1.8); Alkaline Phosphatase 118 U/L (38-126); Anion Gap 14.1 mEq/L (5-15); Aspartate Amino Transferase 20 U/L (17-59); Bilirubin,Total 0.4 mg/dl (0.2-1.3); Blood Urea Nitrogen 21 mg/dl (9-20); Calcium 9.1 mg/dl (8.4-10.2); Carbon Dioxide 21 mmol/L (22.0-30.0); Chloride 109 mmol/L (98-107); Chol/HDL Ratio 2.1 (1-3.5); Cholesterol 109 mg/dl (140-200); Estimated Glomerular Filt Rate 116 ml/min (>60); GFR (African American) 140 ML/MIN (>60); Glucose 88 mg/dl (74-100); HDL Cholesterol 51 mg/dl (40-60); Magnesium 2.1 mg/dl (1.6-2.3); Potassium 4.1 mmoL/L (3.5-5.1); Sodium 140 mmol/L (136-145); Total Protein,Serum 5.9 g/dl (6.3-8.2); Triglycerides 69 mg/dl (30-150)
[2024-09-02 19:16] LABS: Direct LDL Cholesterol 52.63 mg/dL (100-129); Total Iron Binding Capacity 286 ug/dL (261-462)
[2024-09-02 19:23] LABS: 25-OH Vitamin D, Total 63.7 ng/mL (30-100)
[2024-09-02 19:35] LABS: Ferritin 174 ng/ml (17.9-464)
[2024-09-02 20:10] LABS: Vitamin B12 387 pg/mL (239-931)
[2024-09-02 21:44] LABS: Folate > 20.00 ng/mL
[2024-09-02 21:46] LABS: Iron 57 ug/dL (49-181)
== END 2024-09-02 23:59 | disposition home or self-care (01) ==
LOC: LAB.DROPOF 09-03 08:57
PROVIDERS: PCP Student in an Organized Health Care Education/Training Program; Visit Provider Student in an Organized Health Care Education/Training Program
DX: I73.9 Peripheral vascular disease, unspecified (principal); D50.9 Iron deficiency anemia, unspecified; G25.81 Restless legs syndrome; E55.9 Vitamin D deficiency, unspecified
CPT/HCPCS: 80053; 80061; 82306; 82607; 82728; 82746; 83540; 83550; 83735; 85025

== ENCOUNTER → 2024-09-24 07:47 | Day surgery (SDC) | payer OTHER, SELFPAY ==
[2024-09-20 14:49] VITALS: BMI 17.6
[2024-09-24 08:09] VITALS: BP 146/67; PULSE 60; RESP 16; TEMP 36.1; O2SAT 100
[2024-09-24] MEDS: LACTATED RINGERS 1000ML 1,000 ML 25 ML IV (08:15)
--- NOTE | 2024-09-24 08:27 | P.PNANES_ITS ---
[facility] Disclaimer: The information contained in this section may have been updated after the patient was seen, as this information can be updated by other users. Medical History Hx of deep venous thrombosis History of COVID-19 History of gastroesophageal reflux (GERD) Claudication COPD mixed type Smoker Atypical angina Abnormal computed tomography angiography (CTA) Abnormal CT scan of heart Allergic rhinitis Pulmonary emphysema Dyspnea on exertion Smoking greater than 30 pack years Encounter for screening for malignant neoplasm of lung Nodule of right lung Surgical History History of surgery H/O chest tube placement Family History Other Asthma COPD (chronic obstructive pulmonary disease) Social History Smoking Status: Current every day smoker tobacco type: cigarettes packs per day: 1 alcohol intake: never substance use type: denies use current occupational status: unemployed Travel in the last 8 weeks: None household members: significant other housing: house caffeine: No H Anesthesia Checklist Patient Identification Patient Identification: Arm Band and Verbal (Name & ) Structural Data Admitted From: Home Planned Operative Procedure/s: Colonoscopy Consent for Planned Operative Procedure(s) Verified: Yes Verified Documents: Surgical Consent and History and Physical NPO Status Verified Time NPO: 00:00 Additional verifications Anesthesia Reactions: No Hx Blood Transfusions: No Blood Transfusion Reaction: No Airway Assessment Mallampati Score:: Class II C-Spine Mobility Assessed: Yes TMJ Mobility Assessed: Yes Dentition: Edentulous Neurological Assessment Level of Consciousness: Awake Hx Seizures: No Numbness or tingling in extremities: No Anesthesia Plan Anesthesia Risk discussed: Yes Anesthesia Plan: Verified ASA Class: III Anesthesia Type: MAC
--- NOTE | 2024-09-24 09:56 | HMH.SCOPE ---
Procedure: Date: 09/24/24 Patient Date of :: 1965 Performing Provider:: Stuart Morrison MD Colonoscopy Component Colonoscopy Component Was a colonoscopy performed during today's procedure?: Yes Recommended follow up colonoscopy of at least 10 years?: No If no, follow up colonoscopy recommended in ___ years?: (See above) Reason for not recommending >/= 10 yr follow-up interval?: (See above)
== END ==
PROVIDERS: PCP Student in an Organized Health Care Education/Training Program; Visit Provider Surgery
PROC: 0DJD8ZZ Inspection of Lower Intestinal Tract, Via Natural or Artificial Opening Endoscopic (ICD-10-PCS; principal; 2024-09-24 09:30)
DX: Z53.9 Procedure and treatment not carried out, unspecified reason (principal)
CPT/HCPCS: J7120

== ENCOUNTER 2024-11-12 10:12 | Day surgery (SDC) | payer OTHER, SELFPAY ==
--- NOTE | 2024-11-05 13:33 | SUR.PREOP ---
11/05/24 1333-unable to leave voicemail for patient. will call back
[2024-11-12] VITALS (10 sets, daily range): BP systolic 125–165; BP diastolic 74–90; PULSE 53–78; RESP 16–18; TEMP 36.4–36.6; O2SAT 94–100; BMI 18.8
[2024-11-12] MEDS: LACTATED RINGERS 1000ML 1,000 ML 50 ML IV (10:36)
--- NOTE | 2024-11-12 10:42 | HMH.SCOPE ---
Procedure: Date: 11/12/24 Patient Date of :: 1965 Procedure Performed:: Colonoscopy with polypectomy Indications:: Screening Performing Provider:: Stuart Morrison MD Referring Provider:: . Sedation:: Monitored anesthesia care Procedure:: After informed consent was obtained the patient was taken to the endoscopy suite. Sedation ensued after the patient was transferred to the left lateral decubitus position. Pulse, blood pressure, and oxygen saturation were monitored throughout the procedure. Digital rectal exam revealed no significant abnormality. The colonoscope was placed in position. The entire colon was evaluated. The colonoscope was carefully removed and the patient was transferred to recovery in stable condition. Please see findings and specimens below for detail. Findings:: Bowel preparation poor Complex cluster of lobulated polyps within cecum/proximal right colon Specimens:: Lobulated complex cluster of polyps within cecum and proximal right colon (cold snare, cold biopsy forceps, and tattoo placement) Recommendations:: Repeat colonoscopy 3-6 months with extended/alternate bowel preparation. Consider gastroenterology consultation with deferment of colonoscopy to the gastroenterology service secondary to above findings. Complications:: No immediate Estimated blood obtained (mL): 1 Colonoscopy Component Colonoscopy Component Was a colonoscopy performed during today's procedure?: Yes Recommended follow up colonoscopy of at least 10 years?: No If no, follow up colonoscopy recommended in ___ years?: (See above) Reason for not recommending >/= 10 yr follow-up interval?: (See above)
--- NOTE | 2024-11-12 10:50 | EXP.ANES.CKL ---
[facility] Disclaimer: The information contained in this section may have been updated after the patient was seen, as this information can be updated by other users. Medical History Hx of deep venous thrombosis History of COVID-19 History of gastroesophageal reflux (GERD) Claudication COPD mixed type Smoker Atypical angina Abnormal computed tomography angiography (CTA) Abnormal CT scan of heart Allergic rhinitis Pulmonary emphysema Dyspnea on exertion Smoking greater than 30 pack years Encounter for screening for malignant neoplasm of lung Nodule of right lung Surgical History History of surgery H/O chest tube placement Family History Other Asthma COPD (chronic obstructive pulmonary disease) Social History Smoking Status: Current every day smoker tobacco type: cigarettes packs per day: 1 alcohol intake: never substance use type: denies use current occupational status: unemployed Travel in the last 8 weeks: None household members: significant other housing: house caffeine: No Have you lived/traveled outside [place] in past 30 days?: No Contact w/someone who lives/traveled outside [place] past 30 days?: No Exposure to someone with infectious disease in past 14 days?: No Do you have a fever (greater than 100.4 F or 38 C)?: No Have you tested positive for COVID-19: No Exposed to someone with COVID-19 in past 14 days?: No Do you have a sore throat?: No Do you have a cough?: No Do you have any weakness?: No Do you have any diarrhea?: No Are you experiencing any unusual bleeding?: No Do you have any muscle aches/pain?: No Do you have any abdominal pain?: No Are you experiencing loss of taste or smell?: No [facility] Anesthesia Checklist Patient Identification Patient Identification: Arm Band, Family and Verbal (Name & ) Structural Data Admitted From: Home Planned Operative Procedure/s: Colonoscopy Consent for Planned Operative Procedure(s) Verified: Yes Verified Documents: Surgical Consent and History and Physical NPO Status Verified Time NPO: 20:00 Chart Verification Results Verified: CBC, BMP, ECG and Chest Xray Additional verifications Patient : No Anesthesia Reactions: No Hx Blood Transfusions: No Blood Transfusion Reaction: No Cardiovascular Assessment Heart Sounds: S1 & S2 Pulse Rhythm: Irregular Peripheral Edema: No Airway Assessment Mallampati Score:: Class II C-Spine Mobility Assessed: Yes TMJ Mobility Assessed: Yes Dentition: Edentulous Neurological Assessment Level of Consciousness: Awake, Alert, Appropriate and Follows Commands Hx Seizures: No Numbness or tingling in extremities: No Anesthesia Plan Anesthesia Risk discussed: Yes Anesthesia Plan: Verified ASA Class: III Anesthesia Type: MAC
--- NOTE | 2024-11-12 12:27 | SUR.PHASEI ---
@bs. Ordered for pt to stay 2 hours observation. Pt able to drink little water. Warm blankets and heron hugger applied on pt. VSS.
== END 2024-11-12 13:47 | disposition home or self-care (01) ==
PROVIDERS: PCP Student in an Organized Health Care Education/Training Program; Visit Provider Surgery
PROC: 0DJD8ZZ Inspection of Lower Intestinal Tract, Via Natural or Artificial Opening Endoscopic (ICD-10-PCS; CPT 45380; principal; 2024-11-12 11:30)
DX: K63.5 Polyp of colon (principal); Z12.11 Encounter for screening for malignant neoplasm of colon
CPT/HCPCS: 45380; 45381; 45385; J2704; J7120

== ENCOUNTER 2024-11-15 08:57 | Outpatient (CLI) | payer OTHER, SELFPAY ==
[2024-11-15 17:49] LABS: Basophils # 0.1 K/mm3 (0-0.2); Eosinophils # 0.1 K/mm3 (0.0-0.4); Eosinophils % 2.3 % (0.1-12.0); Hematocrit 41.1 % (42.0-52.0); Hemoglobin 13.5 g/dL (14.1-18.0); Lymphocytes # 1.4 K/mm3 (0.7-4.5); Lymphocytes % 28.1 % (10-50); Mean Corpuscular HGB Conc 32.8 g/dL (31.8-35.4); Mean Corpuscular Hemoglobin 31.7 pg (27.0-31.2); Mean Corpuscular Volume 96.5 fl (80-94); Mean Platelet Volume 9.2 fl (7.4-10.4); Monocytes # 0.3 K/mm3 (0.1-1.0); Monocytes % 6.4 % (1.7-9.3); Platelet Count 292 K/mm3 (142-424); Red Blood Count 4.26 M/mm3 (4.60-6.20); Red Cell Distribution Width 13.3 % (11.5-17.5); White Blood Count 4.9 K/mm3 (4.8-10.8)
[2024-11-15 19:22] LABS: Alanine Aminotransferase 18 U/L (12-78); Albumin Level 4.5 g/dl (3.5-5.0); Albumin/Globulin Ratio 2.4 (1.1-1.8); Alkaline Phosphatase 120 U/L (38-126); Anion Gap 17.1 mEq/L (5-15); Aspartate Amino Transferase 25 U/L (17-59); Bilirubin,Total 0.2 mg/dl (0.2-1.3); Blood Urea Nitrogen 19 mg/dl (9-20); Calcium 9.6 mg/dl (8.4-10.2); Carbon Dioxide 20 mmol/L (22.0-30.0); Chloride 108 mmol/L (98-107); Estimated Glomerular Filt Rate 116 ml/min (>60); GFR (African American) 140 ML/MIN (>60); Globulin 1.9 g/dL (1.3-3.2); Glucose 89 mg/dl (74-100); Potassium 4.1 mmoL/L (3.5-5.1); Sodium 141 mmol/L (136-145); Total Protein,Serum 6.4 g/dl (6.3-8.2)
[2024-11-15 19:54] LABS: Thyroid Stimulating Hormone 2.78 uIU/mL (0.465-4.68)
== END 2024-11-15 23:59 | disposition home or self-care (01) ==
LOC: LAB.DROPOF 11-16 08:46
PROVIDERS: PCP Student in an Organized Health Care Education/Training Program; Visit Provider Student in an Organized Health Care Education/Training Program
DX: I73.9 Peripheral vascular disease, unspecified (principal); G25.81 Restless legs syndrome
CPT/HCPCS: 80053; 84443; 85025

== ENCOUNTER 2024-12-31 15:25 | Outpatient (CLI) | payer OTHER, SELFPAY ==
[2024-12-31 16:02] LABS: Basophils # 0.1 K/mm3 (0-0.2); Basophils % 0.7 % (0.1-2.0); Eosinophils # 0.2 K/mm3 (0.0-0.4); Eosinophils % 2.5 % (0.1-12.0); Hematocrit 37.7 % (42.0-52.0); Hemoglobin 12.9 g/dL (14.1-18.0); Lymphocytes # 2.2 K/mm3 (0.7-4.5); Lymphocytes % 25.8 % (10-50); Mean Corpuscular HGB Conc 34.2 g/dL (31.8-35.4); Mean Corpuscular Hemoglobin 31.5 pg (27.0-31.2); Mean Platelet Volume 8.5 fl (7.4-10.4); Monocytes # 0.6 K/mm3 (0.1-1.0); Monocytes % 7.5 % (1.7-9.3); Neutrophils # 5.3 K/mm3 (1.8-7.8); Neutrophils % 62.8 % (37.0-80.0); Platelet Count 306 K/mm3 (142-424); Red Cell Distribution Width 13.3 % (11.5-17.5); White Blood Count 8.4 K/mm3 (4.8-10.8)
[2024-12-31 18:26] LABS: Albumin Level 4.6 g/dl (3.5-5.0); Chloride 107 mmol/L (98-107); Potassium 4.3 mmoL/L (3.5-5.1); Sodium 137 mmol/L (136-145)
[2024-12-31 18:29] LABS: Alanine Aminotransferase 17 U/L (12-78); Albumin/Globulin Ratio 2.4 (1.1-1.8); Alkaline Phosphatase 115 U/L (38-126); Anion Gap 11.3 mEq/L (5-15); Aspartate Amino Transferase 20 U/L (17-59); Blood Urea Nitrogen 20 mg/dl (9-20); Calcium 9.3 mg/dl (8.4-10.2); Carbon Dioxide 23 mmol/L (22.0-30.0); Estimated Glomerular Filt Rate 99 ml/min (>60); GFR (African American) 120 ML/MIN (>60); Globulin 1.9 g/dL (1.3-3.2); Glucose 52 mg/dl (74-100); Total Protein,Serum 6.5 g/dl (6.3-8.2)
[2024-12-31 18:39] LABS: Free T4 (Free Thyroxine) 1.44 ng/dl (0.78-2.19)
[2024-12-31 18:46] LABS: Bilirubin,Total < 0.1 mg/dl (0.2-1.3)
[2024-12-31 18:58] LABS: Thyroid Stimulating Hormone 4.23 uIU/mL (0.465-4.68)
[2025-01-01 08:13] LABS: Triiodothyronine (T3) Free 2.9 pg/mL (2.0-4.4)
[2025-01-03 12:14] LABS: Vitamin B1 214.2 nmol/L (66.5-200.0)
== END 2024-12-31 23:59 | disposition home or self-care (01) ==
LOC: LAB 15:26
PROVIDERS: Specialist; PCP Family Medicine; Visit Provider Family Medicine
DX: D64.9 Anemia, unspecified (principal); R25.1 Tremor, unspecified
CPT/HCPCS: 36415; 80053; 84425; 84439; 84443; 84481; 85025

== ENCOUNTER 2025-01-06 12:49 | Outpatient (CLI) | payer OTHER, SELFPAY ==
--- NOTE | 2025-01-06 13:00 | MR_ITS ---
FINAL REPORT TECHNIQUE: Multiplanar and multisequence imaging of the brain was obtained before and after contrast injection. CLINICAL HISTORY: bilateral hand tremors, worse on the right side COMPARISON: None FINDINGS: Mild atrophy is noted. There is no mass effect or midline shift. Small foci of periventricular and subcortical white matter are nonspecific. No hydrocephalus. The cerebellum and brainstem have an unremarkable appearance. There are no areas of restricted diffusion on diffusion weighted images to suggest acute infarct. Soft tissues are without acute abnormality. Post contrast images reveal no pathologic contrast enhancement. IMPRESSION: No acute intracranial abnormality and no pathologic contrast enhancement. Periventricular and subcortical T2 abnormality, likely related to migraine headache, chronic small vessel ischemia, less likely demyelination. Reviewed, Interpreted and Dictated by Radha Mead MD Transcribed by Meme Person Authenticated and [facility]
[2025-01-06] MEDS: GADOTERIDOL INJ 20ML SYRINGE 13 ML IV (13:45)
== END 2025-01-06 23:59 | disposition home or self-care (01) ==
LOC: RAD 12:50
PROVIDERS: PCP Family Medicine; Visit Provider Specialist
DX: R25.1 Tremor, unspecified (principal)
CPT/HCPCS: 70553; A9576

== ENCOUNTER 2025-08-14 07:37 | Outpatient (CLI) | payer OTHER, SELFPAY ==
--- NOTE | 2025-08-14 | CA_ITS ---
APPROVED REPORT Exam: Pharmacologic Technologist: Faith Harrington Stress Nurse: Gena Caceres Ht: 6 ft 0 in Wt: 127 lbs BSA: 1.76 m2 HR: 57 bpm BP: 91/53 mmHg Indications: R53.83, R94.31 Medical History Medications: Albuterol, Aspirin, Atorvastatin, Bupropion HCI SR, Vitamin B1 D3, Cilostazol, Levothyroxine, Megestrol, Metoprolol Succinate ER, Potassium, Ramipril, Rivaroxaban. Stress Test Details Test: Lexiscan Reason for pharmacologic stress test: physical limitation. HR Resting HR: 57 bpm Max Heart Rate (APMHR): 161.153262 bpm Max HR Achieved: 93 bpm Target HR (85% APMHR): 136.008266 bpm % of APMHR: 57.76 Recovery HR: 84 bpm BP Resting BP: 91.0/53.0 mmHg Max BP: 107.0/62.0 mmHg Recovery BP: 107.0/62.0 mmHg ECG Stress ECG Conclusion Symptoms: None. Arrhythmias/Ectopy: PVC/PAC. ST-T Changes: Less smooth 0.5mm upsloping ST segment changes. Conclusion: Nondiagnostic ECG/Lexiscan. Electronically signed by : Veena Merida MD 08/17/2025 16:16:29
--- OUTSIDE RECORDS SUMMARY | 2025-08-14 07:39 | XMS_ITS | Data Portability ---
Author Organization [place] - [facility] & [facility] [place] ADMIN Address [address] [place] [id number] Assessment Encounter Date Assessment Date Assessment LastModified by Organization Details LastModified Time 12/28/2023 12/28/2023 58-year-old male referred with recent incidental finding of hepatic cysts. These are stable on subsequent imaging. No evidence of underlying chronic liver disease with recent normal CMP and platelet count. He reports recent negative hepatitis C screening. 1) Hepatic cysts: Stable. These have no risk of malignant potential. As a precaution, I will obtain an AFP and repeat hepatic function panel. Unless AFP is elevated, no intervention or follow-up imaging for cyst surveillance is needed. 2) Daily smoker: Smoking cessation counseled, (4 minutes) greater than 3 minutes, less than 10 minutes. Patient smokes 1PPD. He has tried nicotine gum in the past without benefit. He is currently prescribed Chantix but has not yet started. I have recommended that he start this today. Will call patient with lab results. [email or web address] Not available 12/28/2023 11:30:03 Plan of Treatment Reminders Order Date Submit Date Provider Last Modified By Organization Details Last Modified Time Details Appointments None recorded. Lab afp (alpha-fet oprotein) tumor marker, serum or plasma 2023 024 [facility], [address], [address], [place], [address], 4 16:13:43 hepatic function panel, serum 2023 024 [facility], [address], [address], [place], [address], 4 16:13:42 Referral None recorded. Procedures None recorded. Surgeries None recorded. Imaging None recorded. Medication Orders None recorded. Patient TargetsNo targets recorded. Patient Instructions Encounter Date Encounter Id Patient Instructions Last Modified By Organization Details Last Modified Time 12/28/2023 [id number] smoking cessatio n counseling, greater than 3 minutes up to 10 minutes* [email or web address] Not available 12/28/2023 11:30:05 Reason for Referral None Reported. Results Created Date Observation Date Name Description Value Unit Range Abnormal Flag Note LastModifiedBy Organization Detail LastModifiedTime 12/28/1912/29/2023 HEPAT IC FUNCT ION PANEL (7) protein, total 6.3 g/dL 6.0-8. 5 Not Available [facility] ([facility]) [address] [place], [address], 12/29/2023 16:13:42 12/28/19 24 12/29/2023 HEPAT IC FUNCT ION PANEL (7) albumin 4.6 g/dL 3.8-4. 9 Not Available [facility] ([facility]) [address] [place], [address], 12/29/2023 16:13:42 12/28/19 24 12/29/2023 HEPAT IC FUNCT ION PANEL (7) bilirubin, total <0.2 mg/dL 0.0-1. 2 Not Available [facility] ([facility]) [address] [place], [address], 12/29/2023 16:13:42 12/28/19 24 12/29/2023 HEPAT IC FUNCT ION PANEL (7) bilirubin, direct <0.10 mg/dL 0.00-0 .40 Not Available [facility] ([facility]) [address] [place], [address], 12/29/2023 16:13:42 12/28/19 24 12/29/2023 HEPAT IC FUNCT ION PANEL (7) alkaline phosphatase 131 IU/L 44-121 above high normal Not Available [facility] ([facility]) [address] [place], [address], 12/29/2023 16:13:42 12/28/19 24 12/29/2023 HEPAT IC FUNCT ION PANEL (7) AST (SGOT) 22 IU/L 0-40 Not Available [facility] ([facility]) [address] [facility], [place], [address], 12/29/2023 16:13:42 12/28/19 24 12/29/2023 HEPAT IC FUNCT ION PANEL (7) ALT (SGPT) 24 IU/L 0-44 Not Available [facility] ([facility]) [address] [facility], [place], [address], 12/29/2023 16:13:42 12/28/19 24 12/29/2023 AFP, SERUM , TUMOR MARKE R AFP, serum, tumor marker 4.6 NG/mL 0.0-8. 4 [facility] o[facility] s Elect vdihya milum inesc ence Immun oassa y (ECLI A) Value s obtai cecy with diffe rent assay metho ds or kits canno t be used inter mckeon eably . Resul ts canno t be inter prete d as absol chris evide nce of the prese nce or absen ce of rosalinda ortega se. This test is not inter preta ble in pregn ant femal es. Not Available [facility] ([facility]) [address] [facility], [place], [address], 12/29/2023 16:13:43 Result Notes None recorded. Problems Name Problem SNOMED Code Status Onset Date Resolution Date Notes Provider Name and Address Organization Details Recorded Time Liver cyst 69150641 Active 024 Darwin Person PA-C [address], [place], [address], [facility] & [place] 12/28/2023 10:52:49 Smoker 49335052 Active 024 Darwin Person PA-C [address], [place], [address], [facility] & [place] 12/28/2023 11:25:12 Problem Notes None recorded. Medical Equipment None Reported. Allergies No known drug allergies Medications Name Sig Start Date Stop Date Status Note LastModified by Organization Details LastModified Time atorvastati n 40 mg tablet TAKE 1 TABLET 1 TIME EACH DAY AT BEDTIME active Not Available Not Available No t Available promethazin e-DM 6.25 mg-15 mg/5 mL oral syrup TAKE 5 ML (1 TEASPOONF UL) EVERY 4 TO 6 HOURS NEEDED FOR COUGH active Not Available Not Available No t Available doxycycline hyclate 100 mg capsule TAKE 1 CAPSULE 2 TIMES EACH DAY FOR 10 DAYS active Not Available Not Available No t Available azithromyci n 250 mg tablet TAKE 2 TABLETS ON THE FIRST DAY, THEN TAKE 1 TABLET EACH DAY ON THE NEXT 4 DAYS. active Not Available Not Available No t Available nicotine (polacrilex ) 2 mg gum CHEW 1 PIECE DIRECTED FOR NICOTINE CRAVINGS. WEEKS 1 TO 6 - 1 PIECE EVERY 2 HOURS NEEDED. WEEKS 7 TO 9 - 1 PIECE EVERY 4 HOURS NEEDED. WEEKS 10 TO 12 - 1 PIECE EVERY 8 HOURS NEEDED. 12/27 completed Not Available Not Available Not Available prednisone 20 mg tablet TAKE 1 TABLET 2 TIMES EACH DAY FOR 5 DAYS active Not Available Not Available No t Available clopidogrel 75 mg tablet TAKE 1 TABLET 1 TIME EACH DAY active Not Available Not Available No t Available benzonatate 100 mg capsule TAKE 1 CAPSULE 2 TIMES EACH DAY NEEDED FOR COUGH active Not Available Not Available No t Available Ear Drops (carbamide peroxide) 6.5 % PLACE 5 DROPS INTO THE AFFECTED EAR(S) EVERY 12 HOURS FOR 4 DAYS active Not Available Not Available No t Available montelukast 10 mg tablet TAKE 1 TABLET 1 TIME EACH DAY active Not Available Not Available No t Available metoprolol succinate ER 25 mg tablet,exte nded release 24 hr TAKE 1/2 TABLET 1 TIME EACH DAY active Not Available Not Available No t Available azelastine 137 mcg (0.1 %) nasal spray SPRAY 2 TIMES IN EACH NOSTRIL 1 TIME EACH DAY AT BEDTIME active Not Available Not Available No t Available fluticasone propionate 50 mcg/actuati on nasal spray,suspe nsion SPRAY 2 TIMES IN EACH NOSTRIL 1 TIME EACH DAY active Not Available Not Available No t Available ramipril 10 mg capsule TAKE 1 CAPSULE 1 TIME EACH DAY active Not Available Not Available No t Available cyclobenzap rine 5 mg tablet TAKE 1 TABLET 1 TIME EACH DAY AT BEDTIME active Not Available Not Available No t Available cholecalcif hyacinth (vitamin D3) 1,250 mcg (50,000 unit) capsule TAKE 1 CAPSULE 1 TIME EACH WEEK active Not Available Not Available No t Available Breo Ellipta 100 mcg-25 mcg/dose powder for inhalation INHALE 1 DOSE ONCE A DAY active Not Available Not Available No t Available Anoro Ellipta 62.5 mcg-25 mcg/actuati on powder for inhalation INHALE 1 PUFF 1 TIME EACH DAY active Not Available Not Available No t Available Clenpiq 10 mg-3.5 gram-12 gram/175 mL oral solution DRINK 1 DOSE BETWEEN 5 AND 9 PM THE EVENING BEFORE THE COLONOSCO PY. REPEAT THE MORNING, ABOUT 5 HOURS BEFORE THE COLONOSCO PY. active Not Available Not Available No t Available Vitals Date Recorded Body weight Body mass index (BMI) Body height Body temperature Oxygen saturation Oxygen saturation in Arterial blood by Pulse oximetry Heart rate Heart rate Systolic And Diastolic Provider Name and Address Organization Details Last Updated DateTime 4 94168.2 6 g 17.4 kg/m2 182.88 cm 98.2 [degF] 97 % 97 % 52 /min 48 /min 136/76 mm[Hg] Renato Mcclure [facility] [place] 10:31:50 Social History Question Answer Notes LastModified by Mabaya Details LastModified Time Tobacco Smoking Status Current Every Day Smoker [facility] [place] [facility] 12/28/2023 10:34:57 What Is Your Level Of Caffeine Consumption? Heavy [email or web address] Information not available 12/28/2023 How Much Tobacco Do You Smoke? 1 PPD [email or web address] Information not available 12/28/2023 Sex: Unknown Functional Status Question Answer Note LastModified by [employer] Details LastModified Time Do you use any illicit or recreational drugs? No [email or web address] Information not available 12/28/2023 What is your level of alcohol consumption? None Information not available 12/28/2023 Mental Status None recorded. Family History Nothing Reported. Medical History No medical history recorded. Past Encounters Encounter ID Performer Location Encounter Start Date Encounter Closed Date Diagnosis/Indication Diagnosis SNOMED-CT Code Diagnosis ICD10 Code Diagnosis IMO Codes Diagnosis Note [id number] Darwin Person PA-C [facility] [address] [place] [address] [place] [address] 12/28/2023 10:13:50 12/28/2023 11:08:29 Liver cyst 37977474 K76.89 Smoker 24802346 F17.200 Health Concerns Section Related Observation LastModified by Organization Detai ls LastModified Time None Recorded Concern Status LastModified by Organization Details LastModified Time None Recorded Advance Directives Directive None Recorded Payers Insurance Date Sequence Insurance Name Policy Number Policy Smith Covered Member ID Smith Member ID Guarantor Name 02/01/2024 1 [facility] (MEDICAID HMO) Adi Hubbard [id number] Adi Hubbard Notes Date Note Type Note Provider Name and Address Organization Details Recorded Time 12/28/2023 text/html Mr. Hubbard is a very pleasant 58-year-old male who was referred by Azul Landry APRN for evaluation of hepatic cysts. The patient reports incidental finding of multiple hepatic cysts approximately 1 year ago while undergoing a cardiac CT. He underwent repeat imaging for surveillance at [facility] last month with findings c/w multiple stable hepatic cysts. Accompanying labs from October showed an unremarkable CBC and CMP. He denies a family history of liver disease or hepatocelluar carcinoma. He reports remote alcohol use, but none for a few years. He is a smoker and is trying to stop due to his coronary artery disease. He was recently prescribed Chantix but has not started it yet. Physically, he states he is feeling fine. Darwin Person PA-C [address] [facility], [place], [address], [place] - [facility] [place] & [place] 12/28/2023 11:31:09
--- NOTE | 2025-08-14 08:00 | NM_ITS ---
APPROVED REPORT Exam: Nuclear Stress Test Indication: palpitations Patient Location: Outpatient Stress Tech: Faith Pham [place] Tech:KYMBERLY Kerns RT(R)(N) Ht: 6 ft 0 in Wt: 127 lbs HR: 55 bpm BP: 91/53 mmHg BSA: 1.76 m2 TID: 1.16 History: palpitations Procedure: Patient received 0.4 mg of intravenous Lexiscan, resting heart rate 55 bpm, resting blood pressure 91/53 mmHg, with Lexiscan maximum heart rate achieved was 93 bpm which is 85 % of the maximum predicted heart rate and blood pressure was 100/56 mmHg. With Lexiscan, patient denied any complaint of chest pain. Cardiac Stress and Resting SPECT Images: Cardiac Stress and Resting SPECT images were obtained using technetium 99m Myoview 32.9 mCi stress and 10.99 mCi at rest. Resting and stress imaging in supine and prone positions demonstrate a medium sized, moderate, predominantly fixed perfusion defects in the basal septal LV wall and the distal inferoapical LV wall. There is a small region of reversibility towards the septal LV wall. Gated imaging demonstrates mild reduction global LV systolic function. LVEF is calculated at 47%. Conclusion: Medium sized, moderate, predominantly fixed perfusion defects in the basal septal LV wall and the distal inferoapical LV wall. There is a small region of reversibility towards the septal LV wall. Gated imaging demonstrates mild reduction global LV systolic function. LVEF is calculated at 47%. Electronically signed by : Veena Merida MD 08/16/2025 00:43:55
[2025-08-14 08:45] VITALS: BP 91/53; PULSE 57; RESP 16
[2025-08-14] MEDS: SODIUM CHLORIDE 0.9% 10ML SYR (RAD ONLY) 10 ML IV ×2 (09:45)
[2025-08-14] MEDS: ISOTOPE MYOVIEW (PER STUDY) 1 DOSE IV (09:45)
== END 2025-08-14 23:59 | disposition home or self-care (01) ==
LOC: RAD 07:37
PROVIDERS: PCP Nurse Practitioner; Visit Provider Physician Assistant
DX: I49.1 Atrial premature depolarization (principal); I49.3 Ventricular premature depolarization; I25.10 Atherosclerotic heart disease of native coronary artery without angina pectoris; R94.39 Abnormal result of other cardiovascular function study; R94.31 Abnormal electrocardiogram [ECG] [EKG]
CPT/HCPCS: 78452; 93017; 93018; A9502; J2785